=== PATIENT | female | born 1945 | race Caucasian/White ===

== ENCOUNTER → 2021-12-08 12:57 | Outpatient (BNVA) | payer MEDICARE, SELFPAY | PROVIDERS: PCP Pediatrics; Visit Provider Psychiatry & Neurology Neurology | DX: R42 Dizziness and giddiness (principal); R26.9 Unspecified abnormalities of gait and mobility; R55 Syncope and collapse | CPT/HCPCS: 99202 ==

== ENCOUNTER 2021-12-22 07:49 | Outpatient (REF) | payer MEDICARE, SELFPAY ==
--- NOTE | 2021-12-22 07:55 | EEG_ITS ---
This is a 16-channel EEG with an EKG lead. The patient is reported awake during the tracing. Background EEG rhythm is low amplitude fast with no obvious asymmetry or paroxysmal tendency. Some lead and muscle artifacts are noted. Photic stimulation and hyperventilation were not performed. Cardiac lead does not reveal any significant abnormality. No sharp wave spikes or paroxysmal tendency noted. IMPRESSION: Unremarkable EEG. MD ABIMBOLA Thorne/JAKY / [id number]
== END 2021-12-22 07:50 | disposition home or self-care (01) ==
LOC: HO.NEURO 07:49
PROVIDERS: Visit Provider Psychiatry & Neurology Neurology
DX: R07.9 Chest pain, unspecified (principal); R55 Syncope and collapse
CPT/HCPCS: 95816

== ENCOUNTER → 2022-02-08 08:41 | Outpatient (BNVA) | payer MEDICARE, SELFPAY | PROVIDERS: PCP Pediatrics; Visit Provider Psychiatry & Neurology Neurology | DX: R26.9 Unspecified abnormalities of gait and mobility (principal); R42 Dizziness and giddiness; R55 Syncope and collapse; R41.89 Other symptoms and signs involving cognitive functions and awareness; I65.29 Occlusion and stenosis of unspecified carotid artery | CPT/HCPCS: 99212 ==

== ENCOUNTER → 2022-04-26 14:02 | Outpatient (BNVA) | payer MEDICARE, SELFPAY | PROVIDERS: PCP Pediatrics; Visit Provider Psychiatry & Neurology Neurology | DX: R42 Dizziness and giddiness (principal); R55 Syncope and collapse; R26.9 Unspecified abnormalities of gait and mobility; I65.29 Occlusion and stenosis of unspecified carotid artery; R41.89 Other symptoms and signs involving cognitive functions and awareness | CPT/HCPCS: 99212 ==

== ENCOUNTER → 2022-10-13 07:39 | Outpatient (BNVA) | payer MEDICARE, SELFPAY | PROVIDERS: Visit Provider Psychiatry & Neurology Neurology | DX: R42 Dizziness and giddiness (principal); R26.9 Unspecified abnormalities of gait and mobility; R55 Syncope and collapse; I65.29 Occlusion and stenosis of unspecified carotid artery; R41.89 Other symptoms and signs involving cognitive functions and awareness ==

== ENCOUNTER 2024-01-03 11:16 | Outpatient (AMB) | payer MEDICARE, SELFPAY ==
--- NOTE | 2024-01-03 12:17 | MHC.PC.OV ---
Vital Signs 01/03/24 12:23 Height 5 ft 1 in Weight 115 lb 4 oz BMI 21.8 BP 138/60 Blood Pressure Location Rt brachial Respiration 16 Pulse 60 Pulse Source Pulse Oximeter Temp 98.2 F Temp Source Oral Pulse Oximetry (%) 97 Oxygen Delivery Method Room Air Intake Visit Reasons: EST CARE Intake Note: New patient visit Allergies nitroglycerin Allergy (Unknown, Verified 01/03/24 12:19) Unknown Medication List - Last Reconciled 01/08/24 by Juliann Barber MD amlodipine 10 mg (2 x 5 mg) PO DAILY 90 days apixaban (Eliquis) 5 mg PO BID aspirin 81 mg PO DAILY budesonide 90 mcg/actuation 1 inh inhalation BID calcium carb,lactat-vitamin D3 200 mg-6.25 mcg (250 unit) tabs PO DAILY cholecalciferol (vitamin D3) 125 mcg PO DAILY diclofenac sodium 1% (Voltaren Arthritis Pain) 2 grams topical QID 90 days donepezil 5 mg PO DAILY ferrous sulfate 325 mg PO DAILY ferrous sulfate 325 mg PO DAILY fluticasone propion-salmeterol 250-50 mcg/dose (Advair Diskus) 1 ea inhalation Q12H Lmefol Gu-jechip-tbR72-algal 6 mg-600 mg- 2 mg-90.314 mg (Cerefolin NAC (algal oil)) as indicated on the bottle 1 cap orally; loratadine 10 mg PO DAILY 90 days lorazepam 1 mg PO TID PRN sertraline 50 mg PO DAILY 90 days vitamins A,C,E-aajc-emibyc 4,296 mcg-226 mg-90 mg (PreserVision AREDS) 1 cap PO BID Tobacco use date assessed: 01/03/24 Fall risk assessment: No Falls in past year Last assessed Fall Risk: 01/03/24 Dental Screening Dental Screen Date: 01/03/24 Did you have a dental visit in the last 12 months?: No Did you have a dental problem in the last 6 months where you did not have access to dental care?: No Was dental information given to patient?: No (has dentures) HPI HPI Comments History of Present Illness Details This is a 78 y/o female with a past medical history of carotid artery stenosis, syncope, SVT, afib, MCI, asthma, breast ca s/p resection & radiation, presenting for follow up CV:Following with cardiology. [place] to undergo watchman. Heme/Onc: Notable anemia. UTD with double endoscop. Pending hematology consult [facility] Medical History (Updated 01/08/24 @ 11:19 by Juliann Barber MD) Syncope COPD (chronic obstructive pulmonary disease) Anxiety Depression SVT (supraventricular tachycardia) Breast cancer Carotid artery stenosis Surgical History (Updated 01/03/24 @ 16:07 by Jannie Zarate CMA) H/O breast surgery History of hip surgery History of cancer surgery Family History (Updated 01/03/24 @ 12:21 by Jannie Zarate CMA) Mother Lung cancer Father Throat cancer Brother Lung cancer Family/Other Heart disease Daughter Depression Anxiety Other FH: mental illness Substance use Social History (Updated 10/13/22 @ 07:47 by Maria Victoria Cote CMA) Housing: Apartment Alcohol intake: never Patient Tobacco Use Status: Former Tobacco user Years Smoked: unknown e-Cigarette/Vaping Use: Never Used Second Hand Smoke Exposure: No service: No Current occupational status: retired Cognitive needs: No Hearing needs: No Vision needs: Yes (glasses) Questionnaire AUDIT C Alcohol Use Questionnaire (AUDIT-C) 1. How often do you have a drink containing alcohol?: Never 3. How often do you have six or more drinks on one occasion?: Never Total Score: 0 Review of Systems Const Details: ROS CONSTITUTIONAL: Denies weight loss, fever and chills. HEENT: Denies changes in vision and hearing. RESPIRATORY: Denies SOB and cough. CV: Denies palpitations and CP GI: Denies abdominal pain, nausea, vomiting and diarrhea. : Denies dysuria and urinary frequency. MSK: Denies new myalgia and joint pain. SKIN: Denies rash and pruritus. NEUROLOGICAL: Denies headache PSYCHIATRIC: Denies recent changes in mood. Physical exam (Primary Care) Vital Signs: Last Vital Signs Temp 98.2 F 01/03/24 12:23 Pulse 60 01/03/24 12:23 Resp 16 01/03/24 12:23 BP 138/60 01/03/24 12:23 Pulse Ox 97 01/03/24 12:23 Oxygen Delivery Method Room Air 01/03/24 12:23 PHYSICAL EXAM: GENERAL: Alert and oriented x 3. NAD EYES: EOMI. Anicteric. HENT: Moist mucous membranes. No scleral icterus. No cervical lymphadenopathy. LUNGS: Clear to auscultation bilaterally. CARDIOVASCULAR: Regular rate and rhythm. No murmur. No JVD. ABDOMEN: Soft, non-tender +bs EXTREMITIES: No edema. Non-tender. SKIN: No rashes or lesions. Warm. NEUROLOGIC: No focal neurological deficits. CN II-XII grossly intact PSYCHIATRIC: Cooperative. Appropriate mood and affect BMI result Body Mass Index 21.8 Tobacco/Smoking Status: Tobacco use Status Tobacco use date assessed 01/03/24 01/03/24 12:24 Patient Tobacco Use Status Former Tobacco user 01/03/24 12:17 e-Cigarette/Vaping Use Never Used 01/03/24 12:24 Assessment and Plan Assessment & Plan (1) Anemia: Comment: pending hematology consult Code(s): D64.9 - Anemia, unspecified Qualifiers: Anemia type: unspecified type Qualified Code(s): D64.9 - Anemia, unspecified (2) Cognitive impairment: Code(s): R41.89 - Other symptoms and signs involving cognitive functions and awareness (3) Cognitive change: Code(s): R41.89 - Other symptoms and signs involving cognitive functions and awareness (4) Vertigo: Code(s): R42 - Dizziness and giddiness (5) Depression: Code(s): F32.A - Depression, unspecified Qualifiers: Depression Type: major depressive disorder Major depression recurrence: recurrent Active/Remission status: remission status unspecified Qualified Code(s): F33.9 - Major depressive disorder, recurrent, unspecified Orders: Orders MM screening mammo BI 01/03/24 Z12.31 - Encounter for screening mammogram for malignant neoplasm of breast Medications: New diclofenac sodium 1% (Voltaren Arthritis Pain) apply to single elbow, wrist or hand; for hand includes palm/fingers/back of hand 2 grams topical QID 90 days 100 grams 1RF sertraline 50 mg PO DAILY 90 days 90 tabs 3RF Changed From loratadine 10 mg PO DAILY To loratadine 10 mg PO DAILY 90 days 90 tabs 3RF Coding Level of Care Code Est Pt Level 4 (28410) Complex EM visit Add On G2211 Diagnoses Anemia, unspecified type D64.9 Anemia type: unspecified type Cognitive impairment R41.89 Cognitive change R41.89 Vertigo R42 Recurrent major depressive disorder, remission status unspecified F33.9 Depression Type: major depressive disorder Major depression recurrence: recurrent Active/Remission status: remission status unspecified
[2024-01-03 12:23] VITALS: BP 138/60; PULSE 60; RESP 16; TEMP 36.8; O2SAT 97; BMI 21.8
== END 2024-01-03 13:04 | disposition home or self-care (01) ==
PROVIDERS: PCP Internal Medicine; Visit Provider Internal Medicine
DX: D64.9 Anemia, unspecified (principal); R41.89 Other symptoms and signs involving cognitive functions and awareness; R42 Dizziness and giddiness; F33.9 Major depressive disorder, recurrent, unspecified
CPT/HCPCS: 99214; G2211

== ENCOUNTER 2024-01-04 10:00 | Outpatient (REF) | payer MEDICARE, SELFPAY ==
[2024-01-04 11:27] LABS: MANUAL DIFF FLAG NO
[2024-01-04 11:30] LABS: Basophils Absolute Auto 0.1 X10*3/uL (0.0-0.2); Basophils Percent Auto 1.4 % (0-2); Eosinophils Absolute Auto 0.3 X10*3/uL (0.0-0.4); Eosinophils Percent Auto 5.3 % (0-4); Hematocrit 29.8 % (37.0-47.0); Hemoglobin 9.1 g/dl (12.0-16.0); Imm Gran Abs Auto 0.02 X10*3/uL (0.00-0.03); Imm Gran Pct Auto 0.4 % (0.0-0.4); Lymphocytes Absolute Auto 1.5 X10*3/uL (1.2-4.9); Lymphocytes Percent Auto 31.1 % (20-40); Mean Corpuscular HGB Conc 30.5 g/dl (31.0-35.0); Mean Corpuscular Volume 91.7 fL (80.0-98.0); Mean Platelet Volume 10.5 fL (9.4-12.3); Monocytes Absolute Auto 0.5 X10*3/uL (0.1-1.2); Monocytes Percent Auto 10.6 % (2-11); Neutrophils Absolute Auto 2.5 x10*3/uL (2.0-8.3); Neutrophils Percent Auto 51.2 % (45-73); Platelet Count 242 X10*3/uL (160-400); Red Blood Count 3.25 X10*6/uL (4.20-5.50); Red Cell Distribution Width 25.6 % (11.0-16.0); White Blood Count 4.9 X10*3/uL (4.8-10.8)
[2024-01-04 12:05] LABS: Alanine Aminotransferase 16 U/L (0-31); Albumin Level 4.2 g/dL (3.5-5.0); Alkaline Phosphatase 40 U/L (39-117); Anion Gap 14 (12-20); Aspartate Amino Transferase 18 U/L (5-31); Bilirubin Total 0.2 mg/dL (0.0-1.0); Blood Urea Nitrogen 19 mg/dL (9-16); Calcium 9.6 mg/dL (8.4-10.2); Carbon Dioxide 26 mmol/L (22-29); Chloride 108 mmol/L (96-108); Estimated Glomerular Filt Rate > 60; Glucose Random 80 mg/dL (60-115); Iron 343 mcg/dL (30-160); Percent Iron Saturation 93 % (15-50); Potassium 3.7 mmol/L (3.3-5.1); Sodium 144 mmol/L (135-145); Total Iron Binding Capacity 368 mcg/dL (228-428); Total Protein 6.9 g/dL (6.5-8.0); Unsaturated Iron Binding < 25 ug/dL
[2024-01-04 12:11] LABS: Ferritin 17 ng/mL (10-250)
[2024-01-04 12:12] LABS: Vitamin B12 738 pg/mL (200-900)
== END 2024-01-04 10:01 | disposition home or self-care (01) ==
LOC: HO.WFDLDS 10:00
PROVIDERS: Visit Provider Internal Medicine
DX: D64.9 Anemia, unspecified (principal)
CPT/HCPCS: 36415; 80053; 82607; 82728; 83540; 85025

== ENCOUNTER 2024-06-12 09:08 | Outpatient (AMB) | payer MEDICARE, SELFPAY ==
--- NOTE | 2024-06-12 09:18 | A.OFFPC_ITS ---
Vital Signs 06/12/24 09:25 06/12/24 09:36 Height 5 ft 1 in Weight 118 lb BMI 22.3 BP 172/62 H 172/66 H Blood Pressure Location Rt brachial Rt brachial Position Sitting Sitting Pulse 48 L Pulse Source Pulse Oximeter Pulse Oximetry (%) 99 Oxygen Delivery Method Room Air Intake Visit Reasons: 6 month F/U Intake Note: Follow up Stiff Neck Loader Required: No Allergies nitroglycerin Allergy (Unknown, Verified 06/12/24 09:20) Unknown Tobacco use date assessed: 01/03/24 Dental Screening Dental Screen Date: 01/03/24 HPI HPI Comments History of Present Illness Details This is a 79 y/o female with a past medical history of carotid artery stenosis, syncope, SVT, afib, MCI, asthma, breast ca s/p resection & radiation, presenting for follow up CV:Following with cardiology. Has an appointment to undergo Watchman procedure on June 27. On amlodipine, asa, eliquis. Heme/Onc: Notable anemia. UTD with double endoscop. Was referred to hematology consult but this never transpired Memory loss: Had assessment and follows up with the memory clinic. Anxiety, depression. On sertraline, lorazapem ROS CONSTITUTIONAL: Denies weight loss, fever and chills. HEENT: Denies changes in vision and hearing. RESPIRATORY: Denies SOB and cough. CV: Denies palpitations and CP GI: Denies abdominal pain, nausea, vomiting and diarrhea. : Denies dysuria and urinary frequency. MSK: Denies new myalgia and joint pain. SKIN: Denies rash and pruritus. NEUROLOGICAL: Denies headache PSYCHIATRIC: Denies recent changes in mood. PHYSICAL EXAM: GENERAL: Alert and oriented x 3. NAD EYES: EOMI. Anicteric. HENT: Moist mucous membranes. No scleral icterus. No cervical lymphadenopathy. LUNGS: Clear to auscultation bilaterally. CARDIOVASCULAR: Regular rate and rhythm. No murmur. No JVD. ABDOMEN: Soft, non-tender +bs EXTREMITIES: No edema. Non-tender. SKIN: No rashes or lesions. Warm. NEUROLOGIC: No focal neurological deficits. CN II-XII grossly intact PSYCHIATRIC: Cooperative. Appropriate mood and affect [facility] Medical History Syncope COPD (chronic obstructive pulmonary disease) Anxiety Depression SVT (supraventricular tachycardia) Breast cancer Carotid artery stenosis Surgical History H/O breast surgery History of hip surgery History of cancer surgery Family History Mother Lung cancer Father Throat cancer Brother Lung cancer Family/Other Heart disease Daughter Depression Anxiety Other FH: mental illness Substance use Social History Housing: Apartment Alcohol intake: never Patient Tobacco Use Status: Former Tobacco user Years Smoked: unknown e-Cigarette/Vaping Use: Never Used Second Hand Smoke Exposure: No service: No Current occupational status: retired Cognitive needs: No Hearing needs: No Vision needs: Yes (glasses) Questionnaire PHQ-9 Over the last 2 weeks, how often have you been bothered by any of the following problems? 1. Little interest or pleasure in doing things: not at all 2. Feeling down, depressed, or hopeless: several days 3. Trouble falling or staying asleep, or sleeping too much: not at all 4. Feeling tired or having little energy: several days 5. Poor appetite or overeating: not at all 6. Feeling bad about yourself - or that you are a failure or have let yourself or your family down: several days 7. Trouble concentrating on things, such as reading the newspaper or watching television: several days 8. Moving or speaking so slowly that other people could have noticed. Or the opposite - being so fidgety or restless that you have been moving around a lot more than usual: several days 9. Thoughts that you would be better off or of hurting yourself in some way: not at all Total score: 5 Depression Screening Interpretation: Positive Depression Screening Follow-up: Existing condition Depression Screening Done: Yes 58145 - PHQ-9 Billing: Yes Source: Developed by Drs. Beto Harris, Trena Rosario, Carlos Manuel Good and colleagues, with an educational omkar from [employer]. Thrive Questionnaire I am a: Patient What is your living situation today?: I have a steady place to live Within the past 12 months, did the food you bought not last and you didn't have the money to get more?: Never true Within the past 12 months, did you worry whether your food would run out before you got money to buy more?: I choose not to answer this question Do you have trouble paying for medicines?: I choose not to answer this question Do you have trouble getting transportation to medical appointments?: I choose not to answer this question Do you have trouble paying your heating and electricity bill?: I choose not to answer this question Do you have trouble taking care of your child, family member or friend?: I choose not to answer this question Do you have trouble with day-to-day activities such as bathing, preparing meals, shopping, managing finances, etc.?: I choose not to answer this question Are you currently unemployed and looking for a job?: I choose not to answer this question Are you interested in more education?: No Please select the resources that you would like help with: None Currently or been in a relationship where the following occur: No concerns reported THRIVE Score: 0 AUDIT C Alcohol Use Questionnaire (AUDIT-C) 1. How often do you have a drink containing alcohol?: Never Total Score: 0 TRINITY-7 AMB Questionnaire TRINITY-7 Feeling nervous, anxious, or on edge: 1 = Several days Not being able to stop or control worryin = Several days Worrying too much about different things: 1 = Several days Trouble relaxin = Several days Being so restless that it is hard to sit still: 1 = Several days Becoming easily annoyed or irritable: 0 = Not at all Feeling afraid as if something awful might happen: 0 = Not at all Total TRINITY-7 score (0-4 normal; 5-9 mild; 10-14 moderate; 15-21 severe): 5 Source: Developed by Drs. Beto Harris, Trena Rosario, Carlos Manuel Good and colleagues, with an educational omkar from [employer]. Physical exam (Primary Care) Vital Signs: Last Vital Signs Pulse 48 L 06/12/24 09:25 BP 172/66 H 06/12/24 09:36 Pulse Ox 99 06/12/24 09:25 Oxygen Delivery Method Room Air 06/12/24 09:25 BMI result Body Mass Index 22.3 Tobacco/Smoking Status: Tobacco use Status Tobacco use date assessed 01/03/24 06/12/24 09:19 Patient Tobacco Use Status Former Tobacco user 06/12/24 09:19 e-Cigarette/Vaping Use Never Used 06/12/24 09:19 PHQ-9: PHQ-9 Score PHQ-9: Total score 5 06/22/24 10:16 Depression Screening Interpretation: Positive Depression Screening Follow-up: Existing condition Currently or been in a relationship where the following occur: No concerns reported Coding Level of Care Code Est Pt Level 4 (77653) Diagnoses Cognitive impairment R41.89 Chronic obstructive pulmonary disease, unspecified COPD type J44.9 COPD type: unspecified COPD Recurrent major depressive disorder, remission status unspecified F33.9 Active/Remission status: remission status unspecified Depression Type: major depressive disorder Major depression recurrence: recurrent Assessment & Plan Assessment & Plan (1) Cognitive impairment: Code(s): R41.89 - Other symptoms and signs involving cognitive functions and awareness Category: Medical Plan: stable. continues to provide much support with ADLs etc Continue current medications (2) COPD (chronic obstructive pulmonary disease): Code(s): J44.9 - Chronic obstructive pulmonary disease, unspecified Category: Medical Qualifiers: COPD type: unspecified COPD Qualified Code(s): J44.9 - Chronic obstructive pulmonary disease, unspecified Plan: without exacerbation (3) Depression: Code(s): F32.A - Depression, unspecified Category: Medical Qualifiers: Active/Remission status: remission status unspecified Depression Type: major depressive disorder Major depression recurrence: recurrent Qualified Co de(s): F33.9 - Major depressive disorder, recurrent, unspecified Plan: stable on current medications Orders: Orders Lipid Panel 06/12/24 D64.9 - Anemia, unspecified, R41.89 - Other symptoms and signs involving cognitive functions and awareness, F41.9 - Anxiety disorder, unspecified Vitamin B12 and Folate 06/12/24 D64.9 - Anemia, unspecified, R41.89 - Other symptoms and signs involving cognitive functions and awareness, F41.9 - Anxiety disorder, unspecified IRON PROFILE 06/12/24 D64.9 - Anemia, unspecified, R41.89 - Other symptoms and signs involving cognitive functions and awareness, F41.9 - Anxiety disorder, unspecified Pathologist Review - CBC 06/12/24 D64.9 - Anemia, unspecified, R41.89 - Other symptoms and signs involving cognitive functions and awareness, F41.9 - Anxiety disorder, unspecified Complete Blood Count Auto Diff 06/12/24 D64.9 - Anemia, unspecified, R41.89 - Other symptoms and signs involving cognitive functions and awareness, F41.9 - Anxiety disorder, unspecified Comprehensive Met. Panel 06/12/24 D64.9 - Anemia, unspecified, R41.89 - Other symptoms and signs involving cognitive functions and awareness, F41.9 - Anxiety disorder, unspecified Medications: New diclofenac sodium 1% (Arthritis Pain (diclofenac)) apply to single hip, knee, ankle, foot; for foot includes sole/toes/top of foot 4 grams topical QID 100 grams 3RF Refilled amlodipine 10 mg (2 x 5 mg) PO DAILY 180 tabs 3RF 90 days
[2024-06-12 09:25] VITALS: BP 172/62; PULSE 48; O2SAT 99; BMI 22.3
[2024-06-12 09:36] VITALS: BP 172/66
== END 2024-06-12 10:15 | disposition home or self-care (01) ==
PROVIDERS: PCP Internal Medicine; Visit Provider Internal Medicine
DX: R41.89 Other symptoms and signs involving cognitive functions and awareness (principal); J44.9 Chronic obstructive pulmonary disease, unspecified; F33.9 Major depressive disorder, recurrent, unspecified

== ENCOUNTER 2024-06-12 10:29 | Outpatient (REF) | payer MEDICARE, SELFPAY ==
[2024-06-12 14:44] LABS: MANUAL DIFF FLAG NO
[2024-06-12 14:47] LABS: Basophils Absolute Auto 0.1 X10*3/uL (0.0-0.2); Basophils Percent Auto 1.5 % (0-2); Eosinophils Absolute Auto 0.2 X10*3/uL (0.0-0.4); Hematocrit 35.1 % (37.0-47.0); Hemoglobin 11.5 g/dl (12.0-16.0); Imm Gran Abs Auto 0.01 X10*3/uL (0.00-0.03); Imm Gran Pct Auto 0.3 % (0.0-0.4); Lymphocytes Absolute Auto 1.1 X10*3/uL (1.2-4.9); Lymphocytes Percent Auto 28.3 % (20-40); Mean Corpuscular HGB Conc 32.8 g/dl (31.0-35.0); Mean Corpuscular Hemoglobin 32.2 pg (27.0-33.0); Mean Corpuscular Volume 98.3 fL (80.0-98.0); Monocytes Absolute Auto 0.5 X10*3/uL (0.1-1.2); Monocytes Percent Auto 11.3 % (2-11); Neutrophils Absolute Auto 2.1 x10*3/uL (2.0-8.3); Neutrophils Percent Auto 53.6 % (45-73); Platelet Count 187 X10*3/uL (160-400); Red Blood Count 3.57 X10*6/uL (4.20-5.50); Red Cell Distribution Width 13.2 % (11.0-16.0)
[2024-06-12 15:00] LABS: Alanine Aminotransferase 16 U/L (0-31); Albumin Level 4.4 g/dL (3.5-5.0); Alkaline Phosphatase 38 U/L (39-117); Anion Gap 12 (12-20); Aspartate Amino Transferase 20 U/L (5-31); Bilirubin Total 0.4 mg/dL (0.0-1.0); Blood Urea Nitrogen 16 mg/dL (9-16); Calcium 9.4 mg/dL (8.4-10.2); Carbon Dioxide 27 mmol/L (22-29); Chloride 108 mmol/L (96-108); Cholesterol 213 mg/dL (<200); Estimated Glomerular Filt Rate > 60; Glucose Random 101 mg/dL (60-115); HDL Cholesterol 77 mg/dL (>40); Iron 62 mcg/dL (30-160); LDL Cholesterol Calculated 126 mg/dL (<100); Percent Iron Saturation 21 % (15-50); Potassium 4.1 mmol/L (3.3-5.1); Sodium 143 mmol/L (135-145); Total Iron Binding Capacity 290 mcg/dL (228-428); Total Protein 6.9 g/dL (6.5-8.0); Triglycerides 51 mg/dL (<150); Unsaturated Iron Binding 228 ug/dL
[2024-06-12 15:39] LABS: Folate 11.1 ng/mL (> or = 4.0); Vitamin B12 552 pg/mL (200-900)
== END 2024-06-12 10:30 | disposition home or self-care (01) ==
LOC: HO.WFDLDS 10:29
PROVIDERS: Visit Provider Internal Medicine
DX: D64.9 Anemia, unspecified (principal); R41.89 Other symptoms and signs involving cognitive functions and awareness; F41.9 Anxiety disorder, unspecified
CPT/HCPCS: 80053; 80061; 82607; 82746; 83540; 85025; 99212

== ENCOUNTER 2024-12-31 10:50 | Outpatient (AMB) | payer MEDICARE, SELFPAY ==
--- NOTE | 2024-12-31 11:11 | A.OFFVIS_ITS ---
Intake Vital Signs 12/31/24 11:35 Height 5 ft 1 in Weight 112 lb BMI 21.2 BP 100/56 L Blood Pressure Location Lt brachial Position Sitting Respiration 12 Pulse 98 Pulse Source Pulse Oximeter Pulse Oximetry (%) 98 Oxygen Delivery Method Room Air Intake Visit Reasons: awv Intake Note: Medical wellness visit Explosives Engineer Required: No Accompanied by: Spouse Allergies nitroglycerin Allergy (Unknown, Verified 06/12/24 09:20) Unknown HPI HPI Comments History of Present Illness Details This is a 79 y/o female with a past medical history of carotid artery stenosis, syncope, SVT, afib, MCI, asthma, breast ca s/p resection & radiation, presenting for MWV CV: Following with cardiology, Dr Gtz. Underwent Watchman procedure on June 27. On amlodipine, asa, plavix. Heme/Onc: Anemia improved with last testing. UTD with double endoscopy. Memory loss: Had assessment with [facility]. No longer following with them. Anxiety, depression stable on sertraline, lorazapem. Continues donepezil Mammo:UTD Eye: Dr Nahun ROTH CONSTITUTIONAL: Denies weight loss, fever and chills. HEENT: Denies changes in vision and hearing. RESPIRATORY: Denies SOB and cough. CV: Denies palpitations and CP GI: Denies abdominal pain, nausea, vomiting and diarrhea. : Denies dysuria and urinary frequency. MSK: Denies new myalgia and joint pain. SKIN: Denies rash and pruritus. NEUROLOGICAL: Denies headache PSYCHIATRIC: Denies recent changes in mood. PHYSICAL EXAM: GENERAL: Alert and oriented x 3. NAD EYES: EOMI. Anicteric. HENT: Moist mucous membranes. No scleral icterus. No cervical lymphadenopathy. LUNGS: Clear to auscultation bilaterally. CARDIOVASCULAR: Regular rate and rhythm. No murmur. No JVD. ABDOMEN: Soft, non-tender +bs EXTREMITIES: No edema. Non-tender. SKIN: No rashes or lesions. Warm. NEUROLOGIC: No focal neurological deficits. CN II-XII grossly intact PSYCHIATRIC: Cooperative. Appropriate mood and affect [facility] Medical History (Updated 12/31/24 @ 12:11 by Juliann Barber MD) Syncope COPD (chronic obstructive pulmonary disease) Anxiety Depression SVT (supraventricular tachycardia) Breast cancer Carotid artery stenosis Surgical History (Updated 06/27/24 @ 08:59 by Juliann Barber MD) H/O breast surgery History of hip surgery History of cancer surgery Family History Mother Lung cancer Father Throat cancer Brother Lung cancer Family/Other Heart disease Daughter Depression Anxiety Other FH: mental illness Substance use Social History Housing: Apartment Alcohol intake: never Patient Tobacco Use Status: Former Tobacco user Years Smoked: unknown e-Cigarette/Vaping Use: Never Used Second Hand Smoke Exposure: No service: No Current occupational status: retired Cognitive needs: No Hearing needs: No Vision needs: Yes (glasses) Questionnaire Medicare Wellness Checkup What is your age?: 79 or older What gender do you identify with?: female During the past 4 weeks, how much have you been bothered by emotional problems such as feeling anxious, depressed, irritable, sad or downhearted, and blue?: not at all During the past 4 weeks, has your physical & emotional health limited your social activities with family, friends, neighbors, or groups?: not at all During the past 4 weeks, how much bodily pain have you generally had?: mild pain During the past 4 weeks, was someone available to help you if you needed & wanted help?: yes, as much as I wanted During the past 4 weeks, what was the hardest physical activity you could do for at least 2 minutes?: moderate Can you get to places out of walking distance without help? (For eg., can you travel alone on buses, taxis or drive your car?): No Can you go shopping for groceries or clothes without someone's help?: No Can you prepare your own meals?: Yes Can you do your housework without help?: Yes Because of any health problems, do you need the help of another person with your personal care needs such as eating, bathing, dressing or getting around the house?: No Can you handle your own money without help?: No During the past 4 weeks, how would you rate your health in general?: good During the past 4 weeks how have things been going for you?: good & bad parts about equal Are you having difficulties driving your car?: not applicable, I don't use a car Do you always fasten your seat belt when you are in a car?: yes, usually During past 4 weeks, have you been bothered by the following: never: Sexual problems?, Trouble eating well? and Problems using the telephone?, seldom: Falling or dizzy when standing up and Tiredness or fatigue? and sometimes: Teeth or denture problems? Have you fallen 2 or more times in the past year?: No Are you afraid of falling?: No Are you a smoker?: no During the past 4 weeks, how many drinks of wine, beer, or other alcoholic beverages did you have?: no alcohol at all Do you exercise for about 20 minutes 3 or more times a week?: yes, some of the time Have you been given information to help with the following?: yes: Hazards in your house that might hurt you? and yes: Keeping track of your medications? How often do you have trouble taking medicines the way you have been told to take them?: I always take medicine as prescribed How confident are you that you can control & manage most of your health problems?: somewhat confident What is your race?: White Mini Mental State Exam (MMSE) Orientation What is the (year) (season) (date) (day) (month)?: year (2024), season (spring) and date (12/30/2024) Where are we (state) (county) (town or city) (hospital) (floor)?: state ([place]), county ([place]), town or city ([place]), hospital/clinic ([facility] ) and floor (first ) Registration Name of 3 unrelated objects clearly and slowly, then ask patient to repeat all 3 of them. (1st repeat determines score. Make sure they can repeat all three): object 1 (train), object 2 (egg) and object 3 (hat) Attention & Calculation (CHOOSE ONE) Spell WORLD backwards (DLROW): 5 letters Language Show patient a wristwatch & ask what it is. Repeat for pencil.: watch and pencil Ask the patient to repeat the phrase 'No ifs, ands, or buts' after you.: correct Ask the patient to 'take a piece of paper with their right hand' 'fold paper in half' 'place paper on floor': take paper in right hand, fold paper in half and place paper on floor Print the sentence 'CLOSE YOUR EYES' on a piece. If patient actually closes eyes then score.: followed written direction Give patient a blank piece of paper & ask to write a sentence. Score if it contains a noun & verb.: sentence contains subject and verb Score Score: 24 Activity of Daily Living Bathing - sponge bath, tub bath or shower: receives no assistance (gets in/out by self, if usual bathing means Dressing - getting clothes from closets & drawers, including inner/outer garments & fasteners.: gets clothes & gets completely dressed without help Toileting - going to the 'toilet room' for urine/bowel elimination & cleaning self/arranging clothes: goes to toilet room, cleans self, arranges clothes without help Transfer: moves in & out of bed and chair without help (may use support object) Continence: controls urination/bowel movements completely by self Feeding: feeds self without help Total Score: 0 Information obtained from: patient Using telephone: independent Traveling: needs assistance Shopping: needs assistance Preparing meals: independent Housework: independent Taking medicine: needs assistance Managing money: dependent Physical Exam Vital Signs: Last Vital Signs Pulse 98 12/31/24 11:35 Resp 12 12/31/24 11:35 BP 100/56 L 12/31/24 11:35 Pulse Ox 98 12/31/24 11:35 Oxygen Delivery Method Room Air 12/31/24 11:35 BMI result Body Mass Index 21.2 Assessment & Plan Assessment & Plan (1) Medicare annual wellness visit, subsequent: Code(s): Z00.00 - Encounter for general adult medical examination without abnormal findings (2) Cognitive impairment: Code(s): R41.89 - Other symptoms and signs involving cognitive functions and awareness (3) COPD (chronic obstructive pulmonary disease): Code(s): J44.9 - Chronic obstructive pulmonary disease, unspecified Qualifiers: COPD type: unspecified COPD Qualified Code(s): J44.9 - Chronic obstructive pulmonary disease, unspecified (4) Depression: Code(s): F32.A - Depression, unspecified Qualifiers: Depression Type: major depressive disorder Major depression recurrence: recurrent Active/Remission status: remission status unspecified Qualified Code(s): F33.9 - Major depressive disorder, recurrent, unspecified Plan 79 year old for MWV, subsequent Interval history reviewed HRA reviewed Care team updated Chronic medical conditions are stable. She is due for labs Orders: Orders Comprehensive Met. Panel Today D64.9 - Anemia, unspecified, F33.9 - Major depressive disorder, recurrent, unspecified, F41.9 - Anxiety disorder, unspecified, J44.9 - Chronic obstructive pulmonary disease, unspecified IRON PROFILE Today D64.9 - Anemia, unspecified, F33.9 - Major depressive disorder, recurrent, unspecified, F41.9 - Anxiety disorder, unspecified, J44.9 - Chronic obstructive pulmonary disease, unspecified Complete Blood Count Auto Diff Today D64.9 - Anemia, unspecified, F33.9 - Major depressive disorder, recurrent, unspecified, F41.9 - Anxiety disorder, unspecified, J44.9 - Chronic obstructive pulmonary disease, unspecified Lipid Panel Today D64.9 - Anemia, unspecified, F33.9 - Major depressive disorder, recurrent, unspecified, F41.9 - Anxiety disorder, unspecified, J44.9 - Chronic obstructive pulmonary disease, unspecified Hemoglobin A1c Today D64.9 - Anemia, unspecified, F33.9 - Major depressive disorder, recurrent, unspecified, F41.9 - Anxiety disorder, unspecified, J44.9 - Chronic obstructive pulmonary disease, unspecified Coding Level of Care Code Medicare Subsequent ([id number]) Diagnoses Medicare annual wellness visit, subsequent Z00.00 Cognitive impairment R41.89 Chronic obstructive pulmonary disease, unspecified COPD type J44.9 COPD type: unspecified COPD Recurrent major depressive disorder, remission status unspecified F33.9 Depression Type: major depressive disorder Major depression recurrence: recurrent Active/Remission status: remission status unspecified
[2024-12-31 11:35] VITALS: BP 100/56; PULSE 98; RESP 12; O2SAT 98; BMI 21.2
--- OUTSIDE RECORDS SUMMARY | 2024-12-31 12:24 | XMS_ITS | Clinical Summary ---
Author Organization [place] [email or web address] [facility] [employer] [facility] Address [address] [facility] [place] [address] Phone Care Team Providers Care B2B Sales Manager Name Role Phone Juliann Barber MD Primary Care Provider [phone] Allergies Active Allergy Reactions Criticality Noted Date Comments Lisinopril 07/12/2018 Other Reaction(s): Rash/Dermatitis Nitroglycerin 08/13/2010 Severe hypotension occurred in ER Other 01/21/2010 Seasonal Allergies Medications sertraline (ZOLOFT) 50 mg tablet Take 1 Tablet by mouth daily. Active donepeziL (ARICEPT) 5 mg tablet Take 1 Tablet by mouth daily. 3 Active albuterol HFA (PROAIR HFA ; PROVENTIL HFA ; VENTOLIN HFA) 90 mcg/actuation inhaler Inhale 2 Puffs into the lungs every 4 hours as needed. Active LORazepam (ATIVAN) 1 mg tablet Take 1 tablet by mouth every 8 hours as needed for Anxiety. 2 Active fluticasone propionate (FLONASE) 50 mcg/actuation nasal spray instill 2 SPRAYS IN EACH nostril ONCE A DAY directed 2 Active calcium carbonate-vitami n D3 600 mg-5 mcg (200 unit) per tablet Take 1 Tab by mouth daily. 9 Active vit C/E/Zn/coppr/lut ein/zeaxan (PRESERVISION AREDS-2 ORAL) 2 times a day, 0 Refills, Maintenance, 05/17/22 9:47:00 EDT, Partial fill upon patient request if the prescription is for a schedule II opioid drug. 2 Active loratadine (CLARITIN) 10 mg tablet Take 1 tablet (10 mg total) by mouth 1 (one) time each day. 3 Active clopidogreL (Plavix) 75 mg tablet Take 1 tablet (75 mg total) by mouth 1 (one) time each day. 4 Active fluticasone-salm eterol (Advair Diskus) 250-50 mcg/dose diskus inhaler Inhale 1 puff by mouth 2 (two) times a day. 4 Active aspirin 81 mg EC tablet Take 1 tablet (81 mg total) by mouth 1 (one) time each day. 4 Active azelastine (ASTELIN) 137 mcg (0.1 %) nasal spray Administer 1 spray into each nostril 2 (two) times a day. 4 Active diclofenac (VOLTAREN) 1 % topical gel Apply 2 g topically 2 (two) times a day. 4 Active amLODIPine (NORVASC) 5 mg tabletIndication s:Hypertension, unspecified type Take 1 tablet (5 mg total) by mouth 1 (one) time each day. 90 tablet 3 5 Active metoprolol succinate (TOPROL-XL) 25 mg 24 hr tabletIndication s:Paroxysmal atrial fibrillation ([facility] V24, [facility] V28) Take 0.5 tablets (12.5 mg total) by mouth 1 (one) time each day. Do not crush or chew. 45 each 3 5 026 Active Active Problems Problem Noted Date Diagnosed Date Presence of Watchman left atrial appendage closu re device 09/11/2024 Hypertension 07/06/2024 Asbestosis (CMS/[facility] V24, CMS/[facility] V28) 05/28/2024 Asthma 05/28/2024 Chest pressure 11/09/2023 Peripheral vascular disease ([facility] V24) 2022 Overview (05/28/2024): Last Assessment & Plan: The patient has a history of documented peripheral vascular disease I cannot find a lipid profile and she is not on a statin. We will send the patient to the lab to get her lipids checked Carotid artery disease ([facility] V24) 02/24/2023 Overview (05/28/2024): Last Assessment & Plan: Patient has history of carotid artery disease. Patient's last carotid duplex completed 11/2022 which showed 70 to 99% stenosis in the right internal carotid artery. This was previously 50 to 69%. The left internal carotid artery was unchanged with stenosis of 50 to 69%. Follows with [facility] vascular surgery. Orthostatic hypotension 10/29/2022 Overview (05/28/2024): Last Assessment & Plan: Patient has history of orthostatic hypotension in the past. At this time her blood pressure is stable. Lightheaded 07/27/2022 Atrial fibrillation (CMS/HCC V24, CMS/HCC V28) 0 05/20/2022 Overview (07/06/2024): Patient with a history of paroxysmal atrial fibrillation. ILR in last Assessment & Plan: Patient has history of paroxysmal atrial fibrillation and has been on Eliquis for anticoagulation. She was recently hospitalized as outlined in detail above with significant anemia requiring blood transfusions. Source of the bleeding was not identified. She is back on anticoagulation however given her advanced age I am concerned that she remain on anticoagulation with history of significant anemia requiring 3 units of packed red blood cells. We discussed the possibility of Watchman device and the patient is willing to undergo evaluation. We will arrange for consultation with Dr. Garcia to discuss this further. Assessment & Plan (07/06/2024 12:40 PM EST): She keeps asking about it I keep telling her she can get it taken out if she wants but the battery will last for 3 years and I would consider leaving it in because it would allow us to monitor for any future rhythm issues. She is off anticoagulation now that her Watchman device is in she knows she needs another esophageal echocardiogram. Which will be scheduled. Otherwise she is to be so from that standpoint. If she decides she wants the ILR out we can do it but to me it is already there and may provide us with some valuable information down the road. Abnormality of gait 10/01/2021 Overview (05/28/2024): Last Assessment & Plan: Patient is a gait disturbance possibly due to neuropathy she is started physical therapy. Other chest pain 10/01/2021 Overview (05/28/2024): Last Assessment & Plan: Patient has peripheral vascular disease it appears the vascular surgeons keep ordering vascular scans of her carotids that showed moderate disease but no intervention seems to be occurring. Her lipids are under good control based on her recent lipid profile. She is not on medical therapy can find a vascular surgery note to assess what their plans are for her carotids. But I do not think it is contributing to her symptoms. I do not think her subclavian steal she has antegrade flow in both vertebral arteries and biphasic flow in both subclavian's. It is possible that she is having side effects from the amlodipine so organ to hold it for 4 days know her pressures going to go up we will see if her symptoms get better. The patient is obviously having some symptoms but unfortunate I cannot tell from where they are coming. She did have an echocardiogram done last year that showed a posterior pericardial effusion we will send her for another echo to ensure that there is no changes in that or in her LV systolic function. She has an ILR and there is been no sustained arrhythmias when she is having symptoms. None there is the overriding factor to her dementia and try to sort through her symptoms. I have asked them to stop the amlodipine for 4 days told her not to check her blood pressure because it is going to go up and to report to me on Tuesday with her symptoms improved and to restart the amlodipine on Tuesday. Blood pressure slightly elevated today but I am not going to add additional medical therapy.. The patient also takes a low- dose of lorazepam at night and I wonder if that is causing some of her cognitive issues and her lightheadedness. It may just be hanging around for a while she does not have renal insufficiency though Assessment & Plan (07/06/2024 12:40 PM EST): Patient's still having vague chest discomfort that is not cardiac Syncope 10/01/2021 Overview (05/28/2024): Last Assessment & Plan: Patient has had an episode of syncope in the past her implantable loop recorder has been quiet Neck pain without injury 08/20/2021 Overview (05/28/2024): Last Assessment & Plan: 76-year-old woman who describes chronic neck pain that has been worse over the past 4 to 6 months. She also has a present pressure headache sensation that she believes is related to allergies. She had x-rays a little while back but no flexion or extension views. Considering the anterolisthesis of C6 over C7, I would like to obtain flexion and extension x-rays. She really is not interested in any surgery and I do not find anything on exam or imaging to impose surgery upon her. We talked about acupuncture, yoga, physical therapy, and anti-inflammatory medications as a means of treatment. I gave her a paper on natural anti-inflammatory agents for pain relief in athletes. I asked her to discuss things with you regarding whether or not she could take traditional pharmacologic anti-inflammatory medications when her pain was bad. She is welcome to follow-up with us in the future on an as-needed basis. Palpitations 09/29/2020 Overview (05/28/2024): Last Assessment & Plan: Patient reports rare palpitations not associated with chest pain or dyspnea. These palpiations are infrequent and not bothersome. COPD (chronic obstructive pu lmonary disease) ([facility] V24, [facility] V28) 01/09/2020 Presbycusis 01/09/2020 Calcific tendonitis 02/08/2017 Hypertension 10/18/2014 Overview (05/28/2024): Last Assessment & Plan: Blood pressure stable with a reading today of 138/60. Assessment & Plan (07/06/2024 12:40 PM EST): Patient with poorly controlled blood pressure. We are going to add hydralazine since she is allergic to lisinopril to her amlodipine she is warned about lightheadedness or dizziness The above note was prepared with the help of voice recognition software. Please excuse any grammatical or spelling errors that may have occurred Seasonal allergies 08/17/2011 Occlusion and stenosis of unspecified carotid ar indio 03/26/2011 Overview (05/28/2024): L 50-69%, R 50-69% on 03/25/11 Last Assessment & Plan: Patient has history of carotid stenosis and continues to follow with [facility] vascular surgery. Allergic rhinitis 01/08/2008 MVP (mitral valve prolapse) 08/11/2007 Overview (05/28/2024): Last Assessment & Plan: Patient has history of mitral valve prolapse on echocardiogram in the past. She denies any clinical symptoms of heart failure and she appears euvolemic on physical examination. Patient's last echocardiogram was stable. SVT (supraventricular tachycardia) ([facility] V24) 08/11/2007 Overview (05/28/2024): Last Assessment & Plan: Patient was previously on verapamil for history of SVT. This was stopped due to bradycardia. She denies any recurrent episodes of palpitations. Encounters Date Type Department Care Team Description 11/27/2024 11:10 AM EDT Ancillary Procedure [facility]iology [facility] [address] [place] [address] 11/27/[address] [facility]iology [facility] [address] [place] [address] Otilia Rubio PA Appointment 11/20/2024 11:10 AM EDT Ancillary Procedure [facility]iology [facility] [address] [place] [address] 11/20/2024 9:30 AM EDT Ancillary Procedure [facility] Cardiology [facility] [address] [place] [address] 11/20/[address] [facility] Cardiology [facility] [address] [place] [address] Otilia Rubio PA 11/15/2024 11:00 AM EDT Ancillary Procedure [facility] [address] [place] [address] 11/13/2024 12:05 PM EDT Ancillary Procedure [facility] [address] [place] [address] 11/08/2024 10:35 AM EDT Ancillary Procedure [facility] [address] [place] [address] 11/08/2024 Telephone [facility] [address] [place] [address] Arely Lyn NP 10/29/2024 7:45 AM EST Ancillary Procedure [facility] [address] [place] [address] 10/17/2024 10:15 PM EST Ancillary Procedure [facility] [address] [place] [address] from Last 3 Months Immunizations Name Administration Dates Next Due Influenza trivalent, 0.5mL ( Fluzone High-dose) 65yo and older 05/24/2021,04/27/2020,06/02/2016,06/12 Influenza trivalent, with pr eservative (Fluzone; Afluria) 6mo and older 05/13/2019,05/19/2018,06/25/2017,06/14,07/05/2014,07/11/2013,09/06/2012 Pfizer SARS-CoV-2 COVID-19, mRNA, LNP-S, preservative free 05/29/2021 Pneumococcal conjugate 13 va lent (Prevnar 13, PCV13) 2mo and older 09/16/2016 Pneumococcal polysaccharide 23 valent (Pneumovax 23) 2yo and older 08/17/2018 Td Tetanus diptheria (Tdvax) 7yo and older 08/10/2007 Tdap Tetanus diptheria acell ular pertussis (Boostrix; Adacel) 7yo and older 10/08/2011 Surgical History Surgery Date Site/Laterality Comments BREAST LUMPECTOMY 08/29/1982 - 08/28/1983 Lt Breast Benign CATARACT EXTRACTION HYSTERECTOMY at age 27 Medical History Medical History Date Comments PVD (peripheral vascular disease) ([facility] V24) Carotid artery disease ([facility] V24) Orthostatic hypotension Atrial fibrillation ([facility] V24, [facility] V28) COPD (chronic obstructive pu lmonary disease) ([facility] V24, [facility] V28) Palpitations Syncope Abnormality of gait Presbycusis Calcific tendonitis Asbestosis ([facility] V24, [facility] V28) Asthma Hypertension Breast cancer ([facility] V24, [facility] V28) Occlusion and stenosis of bilateral carotid eleanor carroll 03/25/2011 L 50-69% R 50-69% SVT (supraventricular tachycardia) ([facility] V24) MVP (mitral valve prolapse) Family History Medical History Relation Name Comments Hypertension Brother Throat cancer Father Brain cancer Mother Lung cancer Mother Relation Name Status Comments Brother Father Mother Social History Tobacco Use Types Packs/Day Years Used Date Smoking Tobacco: Former Cigarettes 1 15 1 0 - 1984 Smokeless Tobacco: Never Tobacco Cessation:Counseling Given: Not Answered Alcohol Use Standard Drinks/Week Comments Not Currently 1 (1 standard drink = 0.6 oz pur e alcohol) Comments Unknown Sex and Gender Information Value Date Recorded Sex Assigned at Female 08/10/2024 5:58 PM EST Legal Sex Female 2:35 PM EST Gender Identity Female 08/10/2024 5:58 PM EST Sexual Orientation Straight 08/10/2024 5: 58 PM EST Obstetrics History Last Filed Vital Signs Vital Sign Reading Time Taken Comments Blood Pressure 140/78 09/11/2024 3:03 PM EST Pulse 49 09/11/2024 2:42 PM EST Temperature 36.8 ??C (98.3 ??F) 07/04/2024 2:35 PM ES T Respiratory Rate 16 07/04/2024 2:35 PM EST Oxygen Saturation 97% 09/11/2024 2:42 PM EST Inhaled Oxygen Concentration - - Weight 54.4 kg (120 lb) 09/11/2024 2:42 PM EST Height 154.9 cm (5' 1 ) 09/11/2024 2:42 PM EST Body Mass Index 22.67 09/11/2024 2:42 PM EST Plan of Treatment Upcoming Encounters Date Type Department Care Team (Late st Contact Info) Description 06/26/2025 10:40 AM EDT Office Visit [facility] [address] [place] [address] Alondra Molina NP [address] [place] [address] [address] [place] [address] 07/04/2025 10:30 AM EST Office Visit Pulmonolgy - [place] [address] [place] [id number] Anastasiia [place] MD [address] [facility] [address] [place] [address] Health Maintenance Due Date Last Done Comments Zoster Vaccines (1 of 2) 1994 DTaP,Tdap,and Td Vaccines (3 - Td or Tdap) 10/08/2021 10/08/2011, 08/10/2007, 08/10/2007 Depression Screening 08/07/2022 Falls Risk Assessment 08/07/2022 Medicare Annual Wellness Visit 08/07/2022 Osteoporosis Screening (Bone Density Screening) 08/07/2022 Social Influencers of Health Screening 08/07/2022 Hypertension/CHF/CAD Annual BMP Blood Test 08/08/2022 04/15/2020 Cholesterol Screening (Lipid Panel) 05/18/2024 05/18/2019 COVID-19 Vaccine (8 - Pfizer risk 2023- season) 2024 06/12/2024, 06/21/2023, 06/15/2022, Additional history exists Pneumococcal Vaccine: 50+ Years Completed 08/17/2018, 09/16/2016 RSV Immunization Adult Patients Completed 08/15/2023 Influenza Vaccine Completed 06/12/2024, , 06/15/2022, Additional history exists HIB Vaccines Aged Out No longer eligi ble based on patient's age to complete this topic HPV Vaccines Aged Out No longer eligi ble based on patient's age to complete this topic Hepatitis A Vaccines Aged Out No long er eligible based on patient's age to complete this topic Hepatitis B Vaccines Aged Out No long er eligible based on patient's age to complete this topic IPV Vaccines Aged Out No longer eligi ble based on patient's age to complete this topic MMR Vaccines Aged Out No longer eligi ble based on patient's age to complete this topic Meningococcal ACWY Vaccine Aged Out N o longer eligible based on patient's age to complete this topic Meningococcal B Vaccine Aged Out No l onger eligible based on patient's age to complete this topic RSV Immunization Patients Under 20 months Aged Out No longer eligible based on patient's age to complete this topic Varicella Vaccines Aged Out No longer eligible based on patient's age to complete this topic Medical Devices Implanted Type Area Data Recovery Planner Device Identifier Shelf Expiration Date Model / Serial / Lot Bsci-Crm [id number] Implanted:08/30 (Quantity not on file) Cardiac Loop Recorder CiiNOW CARD RHYTHM MGMT [id number] / [id number] / Procedures Procedure Name Priority Date/Time Associated Diagnosis Comments CARDIAC DEVICE CHECK- REMOTE- MURJ Routine 11/27/2024 11:09 AM EDT CARDIAC DEVICE CHECK- REMOTE- MURJ Routine 11/20/2024 11:05 AM EDT CARDIAC DEVICE CHECK- REMOTE- MURJ Routine 11/20/2024 9:27 AM EDT CARDIAC DEVICE CHECK- REMOTE- MURJ Routine 11/15/2024 10:56 AM EDT CARDIAC DEVICE CHECK- REMOTE- MURJ Routine 11/13/2024 12:01 PM EDT CARDIAC DEVICE CHECK- REMOTE- MURJ Routine 11/08/2024 10:32 AM EDT CARDIAC DEVICE CHECK- REMOTE- MURJ Routine 10/29/2024 7:40 AM EST CARDIAC DEVICE CHECK- REMOTE- MURJ Routine 10/17/2024 10:14 PM EST ANNUAL BMP BLOOD TEST Routine 04/15/2020 LIPID PANEL Routine 05/18/2019 from Last 3 Months or Most Recently Relevant to Health Maintenance Results * Cardiac device check - Remote- MURJ (11/27/2024 11:09 AM EDT) Only the most recent of8 resultswithin the time period is included. Date Time Interrogation Session [id number] CV DEVICE CHECK Type Interrogation Session Remote Device Initiated CV DEVICE CHECK Implantable Pulse Generator Data Recovery Planner BSX CV DEVICE CHECK Implantable Pulse Generator Type ILR CV DEVICE CHECK Implantable Pulse Generator Model M301 CV DEVICE CHECK Implantable Pulse Generator Serial Number [id number] CV DEVICE CHECK Implantable Pulse Generator Implant Date [id number] CV DEVICE CHECK Battery Status Beginning of Service CV DEVICE CHECK Atrial Tachy Statistic AT/AF [place] Percent 97.00 CV DEVICE CHECK Date of Service 2024-12-20 CV DEVICE CHECK Anatomical Region Laterality Modality Device Interroga tion 11/26/2024 11:1 9 PM EDT Impressions 11/27/2024 11:04 AM EDT Patient Triggered * Patient triggered event with symptom(s) * Stored EGMs are consistent with or suggestive of _AF__ * Clinical arrhythmia during triggered event: _AF__ * Total patient triggered episodes: 2 Narrative Procedure Note Otilia Rubio PA - 11/27/2024 IMPRESSION: Patient Triggered * Patient triggered event with symptom(s) * Stored EGMs are consistent with or suggestive of _AF__ * Clinical arrhythmia during triggered event: _AF__ * Total patient triggered episodes: 2 us Otilia ZHOU CV IMPLANTABLE CARDIAC DEVICE [place] OCEDURES Final Result * Annual BMP Blood Test (04/15/2020) Annual BMP Blood Test Abstracted us Historical Provider HEALTH MAINTENANCE Final Result * Lipid panel (05/18/2019) LDL/HDL Ratio 2 0 - 4 Triglycerides 71 0 - 150 mg/dL Cholesterol 173 0 - 200 mg/dL HDL 74 >=40 mg/dL LDL Cholesterol 85 0 - 100 mg/dL Blood Venous blood specimen / Unknown Historical Provider LAB BLOOD ORDERABLES Shira l Result from Last 3 Months or Most Recently Relevant to Health Maintenance Insurance MEDICARE [facility] Care Teams B2B Sales Manager Relationship Specialty Start Date End Date Juliann Barber MD PCP - General Internal Medicine 06/27/24
== END 2024-12-31 12:26 | disposition home or self-care (01) ==
LOC: HO.HMCFM 10:51
PROVIDERS: PCP Internal Medicine; Visit Provider Internal Medicine
DX: Z00.00 Encounter for general adult medical examination without abnormal findings (principal); R41.89 Other symptoms and signs involving cognitive functions and awareness; J44.9 Chronic obstructive pulmonary disease, unspecified; F33.9 Major depressive disorder, recurrent, unspecified

== ENCOUNTER → 2024-12-31 10:50 | Outpatient (BNVA) | payer MEDICARE, SELFPAY | PROVIDERS: PCP Internal Medicine; Visit Provider Internal Medicine ==

== ENCOUNTER 2024-12-31 12:15 | Outpatient (REF) | payer MEDICARE, SELFPAY ==
--- OUTSIDE RECORDS SUMMARY | 2024-12-31 13:44 | XMS_ITS | Clinical Summary ---
Author Organization [employer] [facility] [employer] [facility] Address [address] [place] [address] Phone Care Team Providers Care Digital Research Analyst Name Role Phone Juliann Barber MD Primary Care Provider [phone] Allergies Active Allergy Reactions Criticality Noted Date [...] mg 24 hr tabletIndication s:Paroxysmal atrial fibrillation ([facility] V24, [facility] V28) Take 0.5 tablets (12.5 mg total) by mouth 1 (one) time each day. Do not crush or chew. 45 each 3 5 026 Active Active Problems Problem Noted Date Diagnosed Date Presence of Watchman left atrial appendage closu re device 09/11/2024 Hypertension 07/06/2024 Asbestosis ([facility] V24, [facility] V28) 05/28/2024 Asthma 05/28/2024 Chest pressure 11/09/2023 Peripheral vascular disease ([facility] V24) 2022 Overview (05/28/2024): Last Assessment & Plan: The patient has a history of documented peripheral vascular disease I cannot find a lipid profile and she is not on a statin. We will send the patient to the lab to get her lipids checked Carotid artery disease ([facility] V24) 02/24/2023 Overview (05/28/2024): Last Assessment & Plan: Patient has history of carotid artery disease. Patient's last carotid duplex completed 11/2022 which showed 70 to 99% stenosis in the right internal carotid artery. This was previously 50 to 69%. The left internal carotid artery was unchanged with stenosis of 50 to 69%. Follows with [facility] vascular surgery. Orthostatic hypotension 10/29/2022 Overview [...] bothersome. 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 Allergic rhinitis 01/08/2008 MVP (mitral valve prolapse) 08/11/2007 Overview (05/28/2024): Last Assessment & Plan: Patient has history of mitral valve prolapse on echocardiogram in the past. She denies any clinical symptoms of heart failure and she appears euvolemic on physical examination. Patient's last echocardiogram was stable. SVT (supraventricular tachycardia) ([facility] V24) 08/11/2007 Overview (05/28/2024): Last Assessment & Plan: Patient was previously on verapamil for history of SVT. This was stopped due to bradycardia. She denies any recurrent episodes of palpitations. Encounters Date Type Department Care Team Description 11/27/2024 11:10 AM EDT Ancillary Procedure [facility] [address] [place] [address] 11/27/2024 Telephone [facility] [address] [place] [address] Otilia Rubio PA Appointment 11/20/2024 11:10 AM EDT Ancillary Procedure [facility] [address] [place] [address] 11/20/2024 9:30 AM EDT Ancillary Procedure [facility] [address] [place] [address] 11/20/2024 Telephone [facility] [address] [place] [address] Otilia Rubio PA 11/15/2024 11:00 AM EDT Ancillary Procedure [facility] [address] [place] [address] 11/13/2024 12:05 PM EDT Ancillary Procedure [facility] [address] [place] [address] 11/08/2024 10:35 AM EDT Ancillary Procedure [facility] [address] [place] [address] 11/08/2024 Telephone [facility] [address] [place] [address] Arely Lyn NP 10/29/2024 7:45 AM EST Ancillary Procedure [facility] [address] [place] [address] 10/17/2024 10:15 PM EST Ancillary Procedure [facility] [address] [place] [address] from Last 3 Months Immunizations Name Administration [...] History Date Comments PVD (peripheral vascular disease) [place] [place]) Carotid artery disease ([facility] [place]) Orthostatic hypotension Atrial fibrillation ([facility] [place], [facility] V28) COPD (chronic obstructive pu lmonary disease) ([facility] [place], [facility] V[facility]) Palpitations Syncope Abnormality of gait Presbycusis Calcific tendonitis Asbestosis ([facility] [place], [facility] V28) Asthma Hypertension Breast cancer ([facility] [place], [facility] V[facility]) Occlusion and stenosis of bilateral carotid eleanor carroll 03/25/2011 L 50-69% R 50-69% SVT (supraventricular tachycardia) ([facility] [place]) MVP (mitral valve prolapse) Family History [...] Description 06/26/2025 10:40 AM EDT Office Visit [facility] [address] [place] [address] Alondra Molina NP [address] [place] [address] [address] [place] [address] 07/04/2025 10:30 AM EST Office Visit Pulmonolgy - [place] [address] [place] [phone] Anastasiia Fairchild MD [address] [facility] [address] [place] [address] Health Maintenance Due Date Last Done Comments [...] this topic Medical Devices Implanted Type Area Crew Lead Device Identifier Shelf Expiration Date Model / Serial / Lot Bsci-Crm [id number] Implanted:08/30 (Quantity not on file) Cardiac Loop Recorder [employer] CARD RHYTHM MGMT [id number] / [id number] / Procedures Procedure Name Priority Date/Time Associated [...] period is included. Date Time Interrogation Session [id number] CV DEVICE CHECK Type Interrogation Session Remote Device Initiated CV DEVICE CHECK Implantable Pulse Generator Crew Lead BSX CV DEVICE CHECK Implantable Pulse Generator Type ILR CV DEVICE CHECK Implantable Pulse Generator Model M301 CV DEVICE CHECK Implantable Pulse Generator Serial Number [id number] CV DEVICE CHECK Implantable Pulse Generator Implant Date 20220917 CV DEVICE CHECK Battery Status Beginning of Service CV DEVICE CHECK Atrial Tachy Statistic AT/AF [place] Percent 97.00 CV DEVICE CHECK Date of [...] us Otilia ZHOU CV IMPLANTABLE CARDIAC DEVICE NV OCEDURES Final Result * Annual BMP Blood [...] Recently Relevant to Health Maintenance Insurance MEDICARE [facility] Care Teams Digital Research Analyst Relationship Specialty Start Date End Date Juliann Barber MD PCP - General Internal Medicine 06/27/24
[2024-12-31 14:41] LABS: MANUAL DIFF FLAG NO
[2024-12-31 14:54] LABS: Basophils Absolute Auto 0.1 X10*3/uL (0.0-0.2); Basophils Percent Auto 1.6 % (0-2); Eosinophils Absolute Auto 0.3 X10*3/uL (0.0-0.4); Eosinophils Percent Auto 4.8 % (0-4); Hemoglobin 11.9 g/dl (12.0-16.0); Imm Gran Abs Auto 0.01 X10*3/uL (0.00-0.03); Imm Gran Pct Auto 0.2 % (0.0-0.4); Lymphocytes Absolute Auto 1.5 X10*3/uL (1.2-4.9); Lymphocytes Percent Auto 25.1 % (20-40); Mean Corpuscular HGB Conc 32.2 g/dl (31.0-35.0); Mean Corpuscular Hemoglobin 31.6 pg (27.0-33.0); Mean Corpuscular Volume 98.1 fL (80.0-98.0); Mean Platelet Volume 11.7 fL (9.4-12.3); Monocytes Absolute Auto 0.6 X10*3/uL (0.1-1.2); Monocytes Percent Auto 9.5 % (2-11); Neutrophils Absolute Auto 3.4 x10*3/uL (2.0-8.3); Neutrophils Percent Auto 58.8 % (45-73); Platelet Count 200 X10*3/uL (160-400); Red Blood Count 3.77 X10*6/uL (4.20-5.50); Red Cell Distribution Width 12.8 % (11.0-16.0); White Blood Count 5.8 X10*3/uL (4.8-10.8)
[2024-12-31 15:02] LABS: Estimated Average Glucose 97 mg/dL; Hemoglobin A1C 97.3684 umol/L; Total Hemoglobin (HGBA1C) 3143.3788 umol/L
[2024-12-31 15:13] LABS: Alanine Aminotransferase 29 U/L (0-31); Albumin Level 4.2 g/dL (3.5-5.0); Anion Gap 12 (12-20); Aspartate Amino Transferase 30 U/L (5-31); Bilirubin Total 0.3 mg/dL (0.0-1.0); Blood Urea Nitrogen 20 mg/dL (9-16); Calcium 9.6 mg/dL (8.4-10.2); Carbon Dioxide 28 mmol/L (22-29); Chloride 107 mmol/L (96-108); Cholesterol 184 mg/dL (<200); Estimated Glomerular Filt Rate > 60; Glucose Random 85 mg/dL (60-115); HDL Cholesterol 66 mg/dL (>40); Iron 169 mcg/dL (30-160); LDL Cholesterol Calculated 106 mg/dL (<100); Percent Iron Saturation 58 % (15-50); Potassium 4.2 mmol/L (3.3-5.1); Sodium 143 mmol/L (135-145); Total Iron Binding Capacity 290 mcg/dL (228-428); Total Protein 6.7 g/dL (6.5-8.0); Triglycerides 60 mg/dL (<150); Unsaturated Iron Binding 121 ug/dL
[2024-12-31 16:15] LABS: Alkaline Phosphatase 49 U/L (39-117)
== END 2024-12-31 12:16 | disposition home or self-care (01) ==
LOC: HO.WFDLDS 12:15
PROVIDERS: Visit Provider Internal Medicine
DX: D64.9 Anemia, unspecified (principal); J44.9 Chronic obstructive pulmonary disease, unspecified; F41.9 Anxiety disorder, unspecified; F33.9 Major depressive disorder, recurrent, unspecified; Z13.6 Encounter for screening for cardiovascular disorders; Z13.1 Encounter for screening for diabetes mellitus
CPT/HCPCS: 36415; 80053; 80061; 83036; 83540; 85025

== ENCOUNTER 2025-06-20 09:05 | Outpatient (REF) | payer MEDICARE, SELFPAY ==
--- OUTSIDE RECORDS SUMMARY | 2025-06-19 13:00 | XMS_ITS | Encounter Summary ---
Author Organization [place] [facility] Address [address] [place] [address] Care Team Providers Care Back Hanger Name Role Phone Juliann Barber MD Primary Care Provider [phone] Reason for Visit * Reason Comments Follow-up [dx: a-fib..f/u visi t with Dr Garcia..ref by Alondra Molina..NNAMDI/SR pt..deepti w/SR 02/21/24] Encounter Details Date Type Department Care Team (Late st Contact Info) Description 06/19/2025 1:00 PM EDT Office Visit [facility] - [facility] [address] [facility] [address] [place] [address] Fatou Garcia MD [address] [facility] [address] [place] [address] Paroxysmal atrial fibrillation (CMS/HCC V24, CMS/HCC V28) (Primary Dx) Social History Tobacco Use Types Packs/Day Years Used Date Smoking Tobacco: Former Cigarettes 1 15 1 970 - 1985 Smokeless Tobacco: Never Tobacco Cessation:Counseling Given: Not Answered Alcohol Use Standard Drinks/Week Comments Not Currently 1 (1 standard drink = 0.6 oz pur e alcohol) Comments Unknown Sex and Gender Information Value Date Recorded Sex Assigned at Female 08/10/2024 5:58 PM EST Legal Sex Female 2:35 PM EST Gender Identity Female 08/10/2024 5:58 PM EST Sexual Orientation Straight 08/10/2024 5: 58 PM EST documented as of this encounter Last Filed Vital Signs Vital Sign Reading Time Taken Comments Blood Pressure 106/64 06/19/2025 1:22 PM EDT Pulse 77 06/19/2025 1:22 PM EDT Temperature - - Respiratory Rate - - Oxygen Saturation 98% 06/19/2025 1:22 PM EDT Inhaled Oxygen Concentration - - Weight 52.1 kg (114 lb 12.8 oz) 06/19/2025 1:22 PM EDT Height 152.4 cm (5') 06/19/2025 1:22 PM EDT Body Mass Index 22.42 06/19/2025 1:22 PM EDT documented in this encounter Plan of Treatment Upcoming Encounters Date Type Department Care Team (Late st Contact Info) Description 06/26/2025 10:40 AM EDT Office Visit [facility] [address] [place] [address] [address] [place] [address] Alondra Molina NP [address] [place] [address] [address] [place] [address] 07/04/2025 10:30 AM EST Office Visit Pulmonology - [place] [address] [facility] [address] [place] [phone] Anastasiia Fairchild MD [address] [facility] [address] [place] [address] Pending Results Name Type Priority Associated Diagnoses Date /Time ECG 12 lead ECG Routine Paroxysmal atrial fibrillation (CMS/HCC V24, CMS/HCC V28) 06/19/2025 1:28 PM EDT documented as of this encounter Procedures Procedure Name Priority Date/Time Associated Diagnosis Comments ECG 12-LEAD Routine 06/19/2025 1:28 PM EDT Paroxysmal atrial fibrillation (CMS/HCC V24, CMS/HCC V28) documented in this encounter Visit Diagnoses Diagnosis Paroxysmal atrial fibrillation (CMS/HCC V24, CMS/HCC V28)- Primary Atrial fibrillation documented in this encounter Care Teams Back Hanger Relationship Specialty Start Date End Date Juliann Barber MD [address] [place] [address] PCP - General Internal Medicine 06/27/24 documented as of this encounter
--- OUTSIDE RECORDS SUMMARY | 2025-06-20 09:05 | XMS_ITS | Encounter Summary ---
Author Organization [facility] Address [address] [place] [address] Care Team Providers Care Reviewer Sales Name Role Phone Juliann Barber MD Primary Care Provider [phone] Encounter Details Date Type Department Care Team (Late st Contact Info) Description 06/20/2025 9:05 AM EDT Ancillary Procedure [facility] Cardiology [facility] [address] [facility] [address] [place] [address] Arrived Social History Tobacco Use Types Packs/Day Years Used Date Smoking Tobacco: Former Cigarettes 1 15 1 970 - 1984 Smokeless Tobacco: Never Alcohol Use Standard Drinks/Week Comments Not Currently 1 (1 standard drink = 0.6 oz pur e alcohol) Comments Unknown Sex and Gender Information Value Date Recorded Sex Assigned at Female 08/10/2024 5:58 PM EST Legal Sex Female 2:35 PM EST Gender Identity Female 08/10/2024 5:58 PM EST Sexual Orientation Straight 08/10/2024 5: 58 PM EST documented as of this encounter Plan of Treatment Upcoming Encounters Date Type Department Care Team (Late st Contact Info) Description 06/26/2025 10:40 AM EDT Office Visit [facility] [place] [address] [place] [phone] Alondra Molnia NP [address] [place] [address] [address] [place] [address] 07/04/2025 10:30 AM EST Office Visit Pulmonology - [place] [address] [place] [phone] Anastasiia Fairchild MD [address] [place] [address] documented as of this encounter Procedures Procedure Name Priority Date/Time Associated Diagnosis Comments CARDIAC DEVICE CHECK- REMOTE- MURJ Routine 06/20/2025 9:02 AM EDT documented in this encounter Results * Cardiac device check - Remote- MURJ (06/20/2025 9:02 AM EDT) Date Time Interrogation Session [id number] CV DEVICE CHECK Type Interrogation Session Remote Scheduled CV DEVICE CHECK Implantable Pulse Generator Prison Guard Supervisor BSX CV DEVICE CHECK Implantable Pulse Generator Type ILR CV DEVICE CHECK Implantable Pulse Generator Model M301 CV DEVICE CHECK Implantable Pulse Generator Serial Number [id number] CV DEVICE CHECK Implantable Pulse Generator Implant Date 20220917 CV DEVICE CHECK Battery Status Beginning of Service CV DEVICE CHECK Atrial Tachy Statistic AT/AF [place] Percent 86.00 CV DEVICE CHECK Date of Service 2025-06-20 CV DEVICE CHECK Anatomical Region Laterality Modality Device Interroga tion 06/14/2025 8:32 PM EDT Impressions 06/20/2025 9:00 AM EDT Normal Remote: With Events * From 06/14/25 -06/20/25 Events or Alerts: PAF / Watchman 06/27/24 / AF burden for the last 6 days 85% with an average rate 94 bpm. / 147 events. * This is a normal remote diagnostic device check * Battery data was reviewed * Battery status: EDDIE, * Presenting rhythm reviewed * Heart Rate Histograms reviewed Narrative Procedure Note Arely Lyn NP - 06/20/2025 IMPRESSION: Normal Remote: With Events * From 06/14/25 -06/20/25 Events or Alerts: PAF / Watchman 06/27/24 / AF burden for the last 6 days85% with an average rate 94 bpm. / 147 events. * This is a normal remote diagnostic device check * Battery data was reviewed * Battery status: EDDIE, * Presenting rhythm reviewed * Heart Rate Histograms reviewed Arely Lyn [employer] BENCH MECHANIC CV IMPLANTABLE CARDIAC DEVIC E PROCEDURES Final Result documented in this encounter Visit Diagnoses Not on filedocumented in this encounter Care Teams Reviewer Sales Relationship Specialty Start Date End Date Juliann Barber MD [address] [place] [phone] PCP - General Internal Medicine 06/27/24 documented as of this encounter
[2025-06-20 09:25] LABS: MANUAL DIFF FLAG NO
[2025-06-20 09:48] LABS: Hematocrit 35.3 % (37.0-47.0); Hemoglobin 10.9 g/dl (12.0-16.0); Imm Gran Abs Auto 0.00 X10*3/uL (0.00-0.03); Imm Gran Pct Auto 0.0 % (0.0-0.4); Lymphocytes Absolute Auto 1.1 X10*3/uL (1.2-4.9); Mean Corpuscular HGB Conc 30.9 g/dl (31.0-35.0); Mean Corpuscular Hemoglobin 30.3 pg (27.0-33.0); Mean Corpuscular Volume 98.1 fL (80.0-98.0); NRBC Abs Auto 0.000 X10*3/uL (0.0-0.012); NRBC Pct Auto 0.0 /100WBC (0.0-0.2); Platelet Count 228 X10*3/uL (160-400); Red Blood Count 3.60 X10*6/uL (4.20-5.50); White Blood Count 4.5 X10*3/uL (4.8-10.8)
--- OUTSIDE RECORDS SUMMARY | 2025-06-20 09:57 | XMS_ITS | Clinical Summary ---
Author Organization [facility] Address [address] [place] [address] Phone Care Team Providers Care Tool Repair Technician Name Role Phone Juliann Barber MD Primary Care Provider [phone] Allergies Active Allergy Reactions Criticality Noted Date [...] hours as needed for Anxiety. 2 Active calcium carbonate-vitam in D3 600 mg-5 mcg (200 unit) per tablet Take 1 Tab by mouth daily. 9 Active vit C/E/Zn/coppr/rosie tein/zeaxan (PRESERVISION AREDS-2 ORAL) 2 times a day, 0 Refills, Maintenance, 05/17/22 9:47:00 EDT, Partial fill upon patient request if the prescription is for a schedule II opioid drug. 2 Active loratadine (CLARITIN) 10 mg tablet Take 1 tablet (10 mg total) by mouth 1 (one) time each day. 3 Active fluticasone-joan meterol (Advair Diskus) 250-50 mcg/dose diskus inhaler Inhale 1 puff by mouth 2 (two) times a day. 4 Active aspirin 81 mg EC tablet Take 1 tablet (81 mg total) by mouth 1 (one) time each day. 4 Active diclofenac (VOLTAREN) 1 % topical gel Apply 2 g topically 2 (two) times a day. 4 Active ferrous sulfate 325 mg (65 mg iron) EC tablet Take 1 tablet (325 mg total) by mouth 1 (one) time each day. Do not crush, chew, or split. Active escitalopram (LEXAPRO) 10 mg tablet Take 1 tablet (10 mg total) by mouth 1 (one) time each day. Active dilTIAZem XR (DILACOR XR) 180 mg 24 hr capsule Take 1 capsule (180 mg total) by mouth 1 (one) time each day. 30 each 11 5 01/03/20 26 Active amiodarone (PACERONE) 200 mg tablet Take 1 tablet (200 mg total) by mouth 1 (one) time each day. 90 each 1 5 Active Active Problems Problem Noted Date Diagnosed Date Presence of Watchman left atrial appendage closu re device 09/11/2024 Assessment & Plan (01/16/2025 5:03 PM EDT): Patient will continue with lifelong aspirin. Assessment & Plan (01/02/2025 4:21 PM EDT): Patient will continue with lifelong aspirin. Asbestosis ([facility] V24, [facility] V28) 05/28/2024 Asthma 05/28/2024 Peripheral vascular disease ([facility] V24) 2022 Carotid artery disease ([facility] V24) 02/24/2023 Overview (01/16/2025): Assessment & Plan (01/16/2025 5:03 PM EDT): Patient has history of carotid artery disease. Patient's last carotid duplex completed 11/2022 which showed 70 to 99% stenosis in the right internal carotid artery. This was previously 50 to 69%. The left internal carotid artery was unchanged with stenosis of 50 to 69%. Follows with [facility] vascular surgery. Atrial fibrillation (CMS/HCC V24, CMS/HCC V28) 0 05/20/2022 Assessment & Plan (01/16/2025 5:03 PM EDT): Patient has history of paroxysmal atrial fibrillation and has an ILR in place. Recently device that showed persistent atrial fibrillation with heart rates greater than 110 bpm which was 30% of the time. Patient was started on diltiazem in hopes to improve her symptoms and rate control. Unfortunately this did not improve her symptoms and we then started her on amiodarone 200 mg daily in addition to the diltiazem and metoprolol she was already taking. She presents today for follow- up and but unfortunately her shortness of breath continues despite slight improvement in her heart rate control. At this point we will move forward with a SUAD cardioversion in efforts to try to get her back in a normal sinus rhythm. She did have a Watchman device placed 07/2024 therefore out of an abundance of caution we will do the cardioversion with SUAD. She is not on anticoagulation and continues on just aspirin. She will continue with diltiazem, metoprolol and amiodarone. If this does not improve her symptoms then we will have her seen by our electrophysiology colleagues for further assistance in the management of her atrial fibrillation. Assessment & Plan (01/10/2025 10:17 AM EDT): Patient has history of paroxysmal atrial fibrillation and has an ILR in place. Recently device that showed persistent atrial fibrillation with heart rates greater than 110 bpm which was 30% of the time. Patient was started on diltiazem last week in hopes to improve her symptoms and rate control. She has not noticed any difference. We discussed trying an antiarrhythmic. Patient is willing to start amiodarone 200 mg daily and return for an EKG next week. For now she will continue on diltiazem and metoprolol as prescribed. She is not on anticoagulation as she is status post watchman left atrial appendage occlusion device placement. She continues on aspirin per protocol. I will see her next week to repeat an EKG. She will update labs today. Amiodarone is intended for use only in patients with indicated life-threatening arrhythmias because its use is accompanied by substantial toxicity. We discussed the risks including risk for pulmonary toxicity, hepatotoxicity, risk for worsening arrhythmias and risk for thyroid impairment. We will monitor the patient for these conditions throughout treatment. Patient was also warned about the risk for photosensitivity and solar dermatitis. Patient was advised to wear sunscreen and wear protective clothing including a hat when in direct sunlight. Assessment & Plan (01/02/2025 4:21 PM EDT): Patient is history of paroxysmal atrial fibrillation has ILR in place. Recently this showed persistent atrial fibrillation with heart rates greater than 110 bpm 30% of the time. EKG in the office today did show atrial fibrillation/flutter with a heart rate of 99 bpm. She is experiencing shortness of breath when walking her dog which resolves quickly with rest. She has occasional chest discomfort which is no different now than it has been for years. Again, she has no symptoms at rest. On physical examination she does not present with any clinical symptoms of heart failure and she appears euvolemic on. We will adjust her medical therapies and I will change her amlodipine to diltiazem for better rate control. She is not on any anticoagulation since she is status post Watchman left atrial appendage occlusion device placement. She continues on aspirin per protocol. I will have her return next week for reassessment to ensure that her heart rate is under better control prior to her traveling to [place] for at least 6 months. Assessment & Plan (07/06/2024 12:40 PM EST): [...] started physical therapy. Other chest pain 10/01/2021 Assessment & Plan (01/02/2025 4:21 PM EDT): Patient has history of vague chest discomfort which is not believed to be cardiac in nature. Her symptoms are unchanged. Assessment & Plan (07/06/2024 12:40 PM EST): Patient's still having vague chest discomfort that is not cardiac Neck pain without injury 08/20/2021 Overview (05/28/2024): [...] in the future on an as-needed basis. COPD (chronic obstructive pu lmonary disease) ([facility] V24, [facility] V28) 01/09/2020 Presbycusis 01/09/2020 Calcific tendonitis 02/08/2017 Hypertension 10/18/2014 Assessment & Plan (01/16/2025 5:03 PM EDT): Patient's blood pressure is under reasonable control with a reading today of 130/76. Continue with diltiazem and metoprolol as prescribed. Assessment & Plan (01/10/2025 10:17 AM EDT): Patient's blood pressure is under reasonable control with a reading today of 138/72. Continue with diltiazem and metoprolol as prescribed. Assessment & Plan (01/02/2025 4:21 PM EDT): Patient's blood pressure is under reasonable control with a reading of 136/82. I will see her back in the coming weeks for reassessment. Assessment & Plan (07/06/2024 12:40 PM EST): [...] carotid stenosis and continues to follow with [facility] vascular surgery. Allergic rhinitis 01/08/2008 MVP (mitral valve prolapse) 08/11/2007 Overview (05/28/2024): Last Assessment & Plan: Patient has history of mitral valve prolapse on echocardiogram in the past. She denies any clinical symptoms of heart failure and she appears euvolemic on physical examination. Patient's last echocardiogram was stable. Resolved Problems Problem Noted Date Diagnosed Date Resolved Date Hypertension 07/06/2024 01/02/2025 Chest pressure 11/09/2023 01/02/2025 Orthostatic hypotension 10/29/2022 05/0 02/2025 Overview (05/28/2024): Last Assessment & Plan: Patient has history of orthostatic hypotension in the past. At this time her blood pressure is stable. Lightheaded 07/27/2022 01/02/2025 Syncope 10/01/2021 01/02/2025 Overview (05/28/2024): Last Assessment & Plan: Patient has had an episode of syncope in the past her implantable loop recorder has been quiet Palpitations 09/29/2020 01/02/2025 Overview (05/28/2024): Last Assessment & Plan: Patient reports rare palpitations not associated with chest pain or dyspnea. These palpiations are infrequent and not bothersome. SVT (supraventricular tachyc ardia) (CMS/HCC V24) 08/11/2007 01/02/2025 Overview (05/28/2024): Last Assessment & Plan: Patient was previously on verapamil for history of SVT. This was stopped due to bradycardia. She denies any recurrent episodes of palpitations. Encounters Date Type Department Care Team Description 06/20/2025 9:05 AM EDT Ancillary Procedure [facility] [address] [place] [address] Arrived 06/19/2025 1:00 PM EDT Office Visit [facility] [address] [place] [address] Fatou Garcia MD Paroxysmal atrial fibrillation (CMS/HCC V24, CMS/HCC V28) (Primary Dx) 06/13/2025 7:59 AM EDT - 06/13/2025 11:59 PM EDT Hospital Encounter [facility] CT Scan [address] [place] [id number] Pulmonary nodule Discharge Disposition: Home or Self Care 05/06/2025 12:50 PM EDT Ancillary Procedure [facility] - [address] [place] [address] 04/15/[address] [place] [phone] Garth Lewis MD from Last 3 Months Immunizations Immunization Administration Dates Next Due Influenza trivalent, 0.5mL [...] History Date Comments PVD (peripheral vascular disease) ([facility] V24) Carotid artery disease ([facility] V24) Orthostatic hypotension Atrial fibrillation ([facility] V24, [facility] V28) COPD (chronic obstructive pu lmonary disease) ([facility] V24, [facility] V28) Palpitations Syncope Abnormality of gait Presbycusis Calcific tendonitis Asbestosis ([facility] V24, [facility] V28) Asthma Hypertension Breast cancer ([facility] V24, [facility] V28) Occlusion and stenosis of bilateral carotid eleanor carroll 03/25/2011 L 50-69% R 50-69% SVT (supraventricular tachycardia) ([facility] V24) MVP (mitral valve prolapse) Family History Medical History Relation Name Comments Hypertension Brother Throat cancer Father Brain cancer Mother Lung cancer Mother Relation Name Status Comments Brother Father Mother Social History Tobacco Use Types Packs/Day Years Used Date Smoking Tobacco: Former Cigarettes 1 15 1 970 - 1984 Smokeless Tobacco: Never Tobacco Cessation:Counseling [...] Pulse 77 06/19/2025 1:22 PM EDT Temperature 36.3 C (97.4 F) 03/13/2025 8:37 AM EDT Respiratory Rate 16 03/13/2025 8:37 AM EDT Oxygen Saturation 98% 06/19/2025 1:22 PM EDT Inhaled Oxygen Concentration - - Weight 52.1 kg (114 lb 12.8 oz) 06/19/2025 1:22 PM EDT Height 152.4 cm (5') 06/19/2025 1:22 PM EDT Body Mass Index 22.42 06/19/2025 1:22 PM EDT Plan of Treatment Upcoming Encounters Date Type Department Care Team (Late st Contact Info) Description 06/26/2025 10:40 AM EDT Office Visit [facility] [address] [place] [address] [address] [place] [address] Alondra Molina NP [address] [place] [address] [address] [place] [address] 07/04/2025 10:30 AM EST Office Visit Pulmonology - [place] [address] [facility] [address] [place] [phone] Anastasiia Fairchild MD [address] [facility] [address] [place] [address] Health Maintenance Due Date Last Done Comments Zoster Vaccines (1 of 2) 1964 DTaP,Tdap,and Td Vaccines (3 - Td or Tdap) 10/08/2021 10/08/2011, 08/10/2007 Falls Risk Assessment 08/07/2022 Medicare Annual Wellness Visit 08/07/2022 Osteoporosis Screening (Bone Density Screening) 08/07/2022 Social Influencers of Health Screening 08/07/2022 Cholesterol Screening (Lipid Panel) 05/18/2024 05/18/2019 Depression Screening 08/29/2024 Hypertension/CHF/CAD Annual BMP Blood Test 01/10/2026 01/10/2025, 04/15/2020 Pneumococcal Vaccine: 50+ Years Completed 08/17/2018, 09/16/2016 RSV Immunization Adult Patients Completed 08/15/2023 COVID-19 Vaccine Completed 05/30/2025, , 06/21/2023, Additional history exists Influenza Vaccine Completed 05/30/2025, , 06/21/2023, Additional history exists HIB Vaccines Aged Out [...] this topic Medical Devices Implanted Type Area Register Of Deeds Device Identifier Shelf Expiration Date Model / Serial / Lot [id number] Implanted:08/30 (Quantity not on file) Cardiac Loop Recorder [employer] CARD RHYTHM MGMT [id number] / [id number] / Procedures Procedure Name Priority Date/Time Associated Diagnosis Comments CARDIAC DEVICE CHECK- REMOTE- MURJ Routine 06/20/2025 9:02 AM EDT ECG 12-LEAD Routine 06/19/2025 1:28 PM EDT Paroxysmal atrial fibrillation (CMS/HCC V24, CMS/HCC V28) CARDIAC DEVICE CHECK- REMOTE- MURJ Routine 05/06/2025 12:45 PM EDT COMPREHENSIVE METABOLIC PANEL Routine 01/10/2025 10:21 AM EDT Atrial fibrillation, unspecified type (CMS/HCC V24, CMS/HCC V28) LIPID PANEL Routine 05/18/2019 from Last 3 Months or Most Recently Relevant to Health Maintenance Results * Cardiac device check - Remote- MURJ (06/20/2025 9:02 AM EDT) Only the most recent of2 resultswithin the time period is included. Date Time Interrogation Session [id number] CV DEVICE CHECK Type Interrogation Session Remote Scheduled CV DEVICE CHECK Implantable Pulse Generator [employer] BSX CV DEVICE CHECK Implantable Pulse Generator Type ILR CV DEVICE CHECK Implantable Pulse Generator Model M301 CV DEVICE CHECK Implantable Pulse Generator Serial Number [id number] CV DEVICE CHECK Implantable Pulse Generator Implant Date [id number] CV DEVICE CHECK Battery Status Beginning of Service CV DEVICE CHECK Atrial Tachy Statistic AT/AF [place] Percent 86.00 CV DEVICE CHECK Date of [...] * Heart Rate Histograms reviewed Arely Lyn NP CV IMPLANTABLE CARDIAC DEVIC E PROCEDURES Final Result * (ABNORMAL) Comprehensive metabolic panel (01/10/2025 10:21 AM EDT) Pathologist [facility] Glucose 100(H) 70 - 99 mg/dL [facility] Blood Urea Nitrogen (BUN) 24 8 - 27 mg/dL [facility] Creatinine 0.88 0.57 - 1.00 mg/dL [facility] 1 eGFR 66 >59 mL/min/1. 73 [facility] 1 BUN/Creatinine Ratio 27 12 - 28 [facility] 1 Sodium 144 134 - 144 mmol/L [facility] 1 Potassium 4.7 3.5 - 5.2 mmol/L [facility] 1 Chloride 104 96 - 106 mmol/L [facility] 1 Carbon Dioxide 21 20 - 29 mmol/L [facility] 1 Calcium 9.9 8.7 - 10.3 mg/dL [facility] 1 Protein Total 6.7 6.0 - 8.5 g/dL [facility] 1 Albumin 4.6 3.8 - 4.8 g/dL [facility] 1 Globulin Total 2.1 1.5 - 4.5 g/dL [facility] 1 Bilirubin Total 0.2 0.0 - 1.2 mg/dL [facility] 1 Alkaline Phosphatase 52 44 - 121 IU/L [facility] 1 Aspartate aminotransferase (AST) 30 0 - 40 IU/L [facility] 1 Alanine Aminotransferase (ALT) 31 0 - 32 IU/L [facility] 1 Blood Venous blood specimen / Unknown 01/10/2025 10:21 AM EDT 01/10/2025 Narrative [facility] 1 - 01/11/2025 4:06 AM EDT Performed at: 01 - [facility] [id number] Ecclesiastical Worker: Chelsie Cartagena MD, Phone: [phone] Alondra Molina NP LAB BLOOD ORDERABLES Final R esult [facility] 1 * Lipid panel (05/18/2019) LDL/HDL Ratio 2 0 - 4 Triglycerides 71 0 - 150 mg/dL Cholesterol 173 0 - 200 mg/dL HDL 74 >=40 mg/dL LDL Cholesterol 85 0 - 100 mg/dL Blood Venous blood specimen / Unknown Historical Provider LAB BLOOD ORDERABLES Shira l Result from Last 3 Months or Most Recently Relevant to Health Maintenance Insurance MEDICARE [employer] Care Teams Tool Repair Technician Relationship Specialty Start Date End Date Juliann Barber MD [address] [place] [address] PCP - General Internal Medicine 06/27/24
[2025-06-20 10:07] LABS: Alanine Aminotransferase 33 U/L (0-31); Albumin Level 4.3 g/dL (3.5-5.0); Alkaline Phosphatase 64 U/L (39-117); Anion Gap 12 (12-20); Aspartate Amino Transferase 32 U/L (5-31); Blood Urea Nitrogen 22 mg/dL (9-16); Calcium 8.6 mg/dL (8.4-10.2); Carbon Dioxide 24 mmol/L (22-29); Chloride 110 mmol/L (96-108); Cholesterol 192 mg/dL (<200); Estimated Glomerular Filt Rate > 60; HDL Cholesterol 63 mg/dL (>40); Iron 39 mcg/dL (30-160); Percent Iron Saturation 13 % (15-50); Potassium 4.3 mmol/L (3.3-5.1); Sodium 142 mmol/L (135-145); Total Iron Binding Capacity 301 mcg/dL (228-428); Total Protein 6.8 g/dL (6.5-8.0); Triglycerides 59 mg/dL (<150); Unsaturated Iron Binding 262 ug/dL
[2025-06-20 10:40] LABS: Folate 10.9 ng/mL (> or = 4.0); Vitamin B12 622 pg/mL (200-900)
== END 2025-06-20 09:06 | disposition home or self-care (01) ==
LOC: HO.LAB 09:05
PROVIDERS: PCP Internal Medicine; Visit Provider Internal Medicine
DX: D64.9 Anemia, unspecified (principal); F33.9 Major depressive disorder, recurrent, unspecified; F41.9 Anxiety disorder, unspecified; R73.09 Other abnormal glucose; Z13.6 Encounter for screening for cardiovascular disorders
CPT/HCPCS: 36415; 80053; 80061; 82607; 82746; 83036; 83540; 85025

== ENCOUNTER 2025-06-25 09:01 | Outpatient (AMB) | payer MEDICARE, SELFPAY ==
--- NOTE | 2025-06-25 09:17 | A.OFFPC_ITS ---
Vital Signs 06/25/25 09:23 Height 5 ft 1 in Weight 115 lb 8 oz BMI 21.8 BP 159/76 H Blood Pressure Location Lt brachial Position Sitting Respiration 16 Pulse 88 Pulse Source Pulse Oximeter Temp 97.9 F Temp Source Oral Pulse Oximetry (%) 99 Oxygen Delivery Method Room Air Intake Visit Reasons: follow up Intake Note: patient here for follow up Form Raiser Required: No Is last menstrual period known: No Post menopausal: No Patient : No Allergies nitroglycerin Allergy (Unknown, Verified 06/25/25 09:18) Unknown Tobacco use date assessed: 06/25/25 Fall risk assessment: 1 Fall in past year Last assessed Fall Risk: 06/25/25 Dental Screening Dental Screen Date: 06/25/25 Did you have a dental visit in the last 12 months?: No Did you have a dental problem in the last 6 months where you did not have access to dental care?: No Was dental information given to patient?: No HPI HPI Comments 2 History of Present Illness Details This is a 80 y/o female with a past medical history of carotid artery stenosis, syncope, SVT, afib, MCI, asthma, breast ca s/p resection & radiation, presenting for follow up CV: Following with cardiology, Dr Gtz. Underwent Watchman procedure 05/2024. On amlodipine, asa. Off plavix Heme/Onc: Anemia improved with last testing. UTD with double endoscopy. Memory loss: Had assessment with [facility]. No longer following with them. Anxiety, depression stable on sertraline, lorazapem. Continues donepezil-will increase her dose. Asthma/copd is stable on albuterol, wixela Mammo:UTD Eye: Dr Nahun ROTH CONSTITUTIONAL: Denies weight loss, fever and chills. HEENT: Denies changes in vision and hearing. RESPIRATORY: Denies SOB and cough. CV: Denies palpitations and CP GI: Denies abdominal pain, nausea, vomiting and diarrhea. : Denies dysuria and urinary frequency. MSK: Denies new myalgia and joint pain. SKIN: Denies rash and pruritus. NEUROLOGICAL: Denies headache PSYCHIATRIC: Denies recent changes in mood. PHYSICAL EXAM: GENERAL: Alert and oriented x 3. NAD EYES: EOMI. Anicteric. HENT: Moist mucous membranes. No scleral icterus. No cervical lymphadenopathy. LUNGS: Clear to auscultation bilaterally. CARDIOVASCULAR: Regular rate and rhythm. No murmur. No JVD. ABDOMEN: Soft, non-tender +bs EXTREMITIES: No edema. Non-tender. SKIN: No rashes or lesions. Warm. NEUROLOGIC: No focal neurological deficits. CN II-XII grossly intact PSYCHIATRIC: Cooperative. Appropriate mood and affect [facility] Medical History (Updated 12/31/24 @ 12:11 by Juliann Barber MD) Syncope COPD (chronic obstructive pulmonary disease) Anxiety Depression SVT (supraventricular tachycardia) Breast cancer Carotid artery stenosis Surgical History (Updated 06/27/24 @ 08:59 by Juliann Barber MD) H/O breast surgery History of hip surgery History of cancer surgery Family History Mother Lung cancer Father Throat cancer Brother Lung cancer Family/Other Heart disease Daughter Depression Anxiety Other FH: mental illness Substance use Social History Housing: Apartment Alcohol intake: never Patient Tobacco Use Status: Former Tobacco user Years Smoked: unknown e-Cigarette/Vaping Use: Never Used Second Hand Smoke Exposure: No service: No Current occupational status: retired Cognitive needs: No Hearing needs: No Vision needs: Yes (glasses) Questionnaire PHQ-9 Over the last 2 weeks, how often have you been bothered by any of the following problems? 1. Little interest or pleasure in doing things: several days 2. Feeling down, depressed, or hopeless: several days 3. Trouble falling or staying asleep, or sleeping too much: several days 4. Feeling tired or having little energy: several days 5. Poor appetite or overeating: not at all 6. Feeling bad about yourself - or that you are a failure or have let yourself or your family down: several days 7. Trouble concentrating on things, such as reading the newspaper or watching television: several days 8. Moving or speaking so slowly that other people could have noticed. Or the opposite - being so fidgety or restless that you have been moving around a lot more than usual: several days 9. Thoughts that you would be better off or of hurting yourself in some way: not at all Total score: 7 Depression Screening Interpretation: Positive (on medications) Depression Screening Follow-up: Existing condition and Other Depression Screening Done: Yes Source: Developed by Drs. Beto Harris, Carlos Manuel Alcantar and colleagues, with an educational omkar from [employer]. Thrive Questionnaire Date Thrive assessed: 06/12/24 I am a: Parent/Caregiver What is your living situation today?: I have a steady place to live Within the past 12 months, did the food you bought not last and you didn't have the money to get more?: I choose not to answer this question Within the past 12 months, did you worry whether your food would run out before you got money to buy more?: Never true Do you have trouble paying for medicines?: No Do you have trouble getting transportation to medical appointments?: No Do you have trouble paying your heating and electricity bill?: No Do you have trouble taking care of your child, family member or friend?: No Do you have trouble with day-to-day activities such as bathing, preparing meals, shopping, managing finances, etc.?: Yes Are you currently unemployed and looking for a job?: No Are you interested in more education?: No Please select the resources that you would like help with: None Currently or been in a relationship where the following occur: No concerns reported THRIVE Score: 0 AUDIT C Alcohol Use Questionnaire (AUDIT-C) 1. How often do you have a drink containing alcohol?: Never Total Score: 0 TRINITY-7 AMB Questionnaire TRINITY-7 Feeling nervous, anxious, or on edge: 1 = Several days Not being able to stop or control worryin = Several days Worrying too much about different things: 1 = Several days Trouble relaxin = Several days Being so restless that it is hard to sit still: 1 = Several days Becoming easily annoyed or irritable: 1 = Several days Feeling afraid as if something awful might happen: 1 = Several days Total TRINITY-7 score (0-4 normal; 5-9 mild; 10-14 moderate; 15-21 severe): 7 Source: Developed by Trena Badillo Kurt Kroenke and colleagues, with an educational omkar from [employer]. Physical exam (Primary Care) Vital Signs: Last Vital Signs Temp 97.9 F 06/25/25 09:23 Pulse 88 06/25/25 09:23 Resp 16 06/25/25 09:23 BP 159/76 H 06/25/25 09:23 Pulse Ox 99 06/25/25 09:23 Oxygen Delivery Method Room Air 06/25/25 09:23 BMI result Body Mass Index 21.8 Tobacco/Smoking Status: Tobacco use Status Tobacco use date assessed 06/25/25 06/25/25 09:24 Patient Tobacco Use Status Former Tobacco user 06/25/25 09:24 e-Cigarette/Vaping Use Never Used 06/25/25 09:24 PHQ-9: PHQ-9 Score PHQ-9: Total score 7 06/25/25 09:47 Depression Screening Interpretation: Positive (on medications) Depression Screening Follow-up: Existing condition and Other Thrive Assessment: Date of Thrive Assessment Date Thrive assessed 06/12/24 06/25/25 09:24 Currently or been in a relationship where the following occur: No concerns reported Coding Level of Care Code Est Pt Level 4 (29759) Complex EM visit Add On G2211 Diagnoses Anxiety F41.9 Recurrent major depressive disorder, remission status unspecified F33.9 Depression Type: major depressive disorder Major depression recurrence: recurrent Active/Remission status: remission status unspecified Cognitive impairment R41.89 Chronic obstructive pulmonary disease, unspecified COPD type J44.9 COPD type: unspecified COPD Assessment & Plan Assessment & Plan (1) Anxiety: Code(s): F41.9 - Anxiety disorder, unspecified Category: Medical (2) Depression: Code(s): F32.A - Depression, unspecified Category: Medical Qualifiers: Depression Type: major depressive disorder Major depression recurrence: recurrent Active/Remission status: remission status unspecified Qualified Code(s): F33.9 - Major depressive disorder, recurrent, unspecified (3) Cognitive impairment: Code(s): R41.89 - Other symptoms and signs involving cognitive functions and awareness Category: Medical (4) COPD (chronic obstructive pulmonary disease): Code(s): J44.9 - Chronic obstructive pulmonary disease, unspecified Category: Medical Qualifiers: COPD type: unspecified COPD Qualified Code(s): J44.9 - Chronic obstructive pulmonary disease, unspecified Plan Alzheimer-increase donepezil. No longer following neuropsych Depression & anxiety are stable on current medication CV: following with cardiology. Blood pressure is stable on medications Medications: New albuterol sulfate 90 mcg/actuation (Ventolin HFA) 2 puffs inhalation Q4-6H PRN 8.5 grams 3RF shortness of breath or wheezing lorazepam 1 mg PO TID PRN 30 tabs 3RF anxiety donepezil 10 mg PO BEDTIME 90 tabs 3RF Refilled azelastine administer into each nostril 137 mcg (0.137 mL) intranasal BID 30 mL 3RF fluticasone propionate 50 mcg/actuation administer into each nostril 2 sprays intranasal DAILY 16 grams 3RF fluticasone propion-salmeterol 250-50 mcg/dose (Wixela Inhub) 1 inh inhalation BID 3 ea 3RF loratadine 10 mg PO DAILY 90 tabs 3RF 90 days sertraline 50 mg PO DAILY 90 tabs 3RF 90 days amlodipine 10 mg (2 x 5 mg) PO DAILY 180 tabs 3RF 90 days Discontinued donepezil Discontinued Reason: Doctor's Order 5 mg PO DAILY 90 tabs 3RF
[2025-06-25 09:23] VITALS: BP 159/76; PULSE 88; RESP 16; TEMP 36.6; O2SAT 99; BMI 21.8
--- OUTSIDE RECORDS SUMMARY | 2025-06-25 10:02 | XMS_ITS ---
Author Name [facility] Organization Unknown Care Team Organization Name Specialty Phone Email Start Date End Da te [facility] Termed, PROVIDER Primary Care 07/06/202203/29
== END 2025-06-25 10:04 | disposition home or self-care (01) ==
LOC: HO.HMCFM 09:02
PROVIDERS: PCP Internal Medicine; Visit Provider Internal Medicine
DX: F41.9 Anxiety disorder, unspecified (principal); F33.9 Major depressive disorder, recurrent, unspecified; R41.89 Other symptoms and signs involving cognitive functions and awareness; J44.9 Chronic obstructive pulmonary disease, unspecified

== ENCOUNTER → 2025-06-25 09:01 | Outpatient (BNVA) | payer MEDICARE, SELFPAY | PROVIDERS: PCP Internal Medicine; Visit Provider Internal Medicine | DX: F41.9 Anxiety disorder, unspecified (principal); F33.9 Major depressive disorder, recurrent, unspecified; R41.89 Other symptoms and signs involving cognitive functions and awareness; J44.9 Chronic obstructive pulmonary disease, unspecified; G30.9 Alzheimer's disease, unspecified; F02.80 Dementia in other diseases classified elsewhere, unspecified severity, without behavioral disturbance, psychotic disturbance, mood disturbance, and anxiety; Z79.82 Long term (current) use of aspirin; Z79.899 Other long term (current) drug therapy; Z13.31 Encounter for screening for depression | CPT/HCPCS: 96127; 99212 ==